=== PATIENT | female | born 1945 | race African-American/Black ===

== ENCOUNTER 2020-01-07 07:50 | Inpatient (IN) ==
[2020-01-07 08:48] LABS: Basophils # 0.1 10*3/uL (0.0-0.2); Basophils % 0.9 % (0.0-0.8); Hematocrit 39.7 VOL% (35.7-47.0); Hemoglobin 13.1 GM/DL (12.0-16.0); Immature Granulocytes % 0.2 %; Immature Granulocytes Absolute 0.01 #; Lymphocytes % 18.5 % (21.3-54.2); Mean Corpuscular Volume 89.8 FL (87-102); Mean Platelet Volume 11.3 FL (9.6-12.0); Monocytes % 11.1 % (1.7-12.7); Neutrophils % 69.3 % (38.7-73.9); Platelet Count 129 T/CUMM (130-400); Red Blood Count 4.42 MC/CUMM (3.8-5.5); Red Cell Distribution Width 14.5 % (9.3-17.3); White Blood Count 5.5 T/CUMM (4-12)
[2020-01-07 09:17] LABS: Alanine Aminotransferase 19 U/L (13-56); Alkaline Phosphatase 85 U/L (45-117); Aspartate Amino Transferase 27 U/L (0-37); Bilirubin,Total < 0.39 MG/DL (0.2-1.0); Blood Urea Nitrogen 16 MG/DL (7-18); Calcium 8.8 MG/DL (8.5-10.1); Estimated Glom Filtration Rate 65 ML/MIN; Glucose 107 MG/DL (74-106); Osmolality,Calculated 266.4 MOS/KG (273-304); Total Protein 7.7 G/DL (6.4-8.3)
[2020-01-07] MEDS ORDERED: LEVOFLOXACIN INJ 750 MG in PREMIX 1 EACH IV STA (09:56)
[2020-01-07] MEDS ORDERED: GLUCAGON 1 MG VIAL IM PRN (10:42)
[2020-01-07] MEDS ORDERED: DEXTROSE 50% 25 GM/50 ML VIAL IV PRN (10:42)
[2020-01-07] MEDS ORDERED: BISACODYL 5 MG TABLET PO PRN (10:42)
[2020-01-07] MEDS ORDERED: ENOXAPARIN 40 MG/0.4 ML SYRINGE SUBCUT SCH (12:00)
[2020-01-07 13:29] LABS: ABG Base Excess 5.3 MMOL/L (-2.5-2.5); ABG HCO3 29.2 MMOL/L (20-26); ABG Oxygen Saturation 98.9 % (95-100); ABG PCO2 43.1 MM HG (35-48); ABG TCO2 26.1 MMOL/L (23-27)
[2020-01-07] MEDS ORDERED: MAGNESIUM SULF RIDER 2 GM in PREMIX 1 EACH IV PRN (14:45)
[2020-01-07] MEDS ORDERED: MAGNESIUM SULF RIDER 4 GM in PREMIX 1 EACH IV PRN (14:45)
[2020-01-07] MEDS: SODIUM CHLORIDE 0.9% 1,000 ML IV SCH ×2 (16:31→21:10)
[2020-01-07] MEDS: cefTRIAXone 1,000 MG in SYRINGE 1 EACH IV SCH (16:31)
[2020-01-07] MEDS: AZITHROMYCIN INJ 500 MG in SODIUM CHLORIDE 0.9% 250 ML IV SCH (16:32)
[2020-01-07] MEDS: POTASSIUM CHLORIDE 20 MEQ TABLET PO PRN ×3 (19:23→23:30)
[2020-01-07] MEDS: ONDANSETRON 4 MG/2 ML VIAL IV PRN (21:10)
[2020-01-07] MEDS: carvediloL 12.5 MG TABLET PO SCH (21:10)
[2020-01-08] MEDS: SODIUM CHLORIDE 0.9% 1,000 ML IV SCH ×2 (04:55→06:23)
[2020-01-08] MEDS: ACETAMINOPHEN 325 MG TABLET PO PRN (04:55)
[2020-01-08 06:21] LABS: Basophils % 0.5 % (0.0-0.8); Hematocrit 35.2 VOL% (35.7-47.0); Hemoglobin 11.4 GM/DL (12.0-16.0); Immature Granulocytes % 0.2 %; Immature Granulocytes Absolute 0.01 #; Lymphocytes # 1.3 10*3/uL (1.4-4.0); Lymphocytes % 29.7 % (21.3-54.2); Mean Corpuscular HGB Conc 32.4 GM/DL (32-36); Mean Platelet Volume 12.5 FL (9.6-12.0); Monocytes % 11.3 % (1.7-12.7); Neutrophils % 58.3 % (38.7-73.9); Platelet Count 103 T/CUMM (130-400); Red Blood Count 3.87 MC/CUMM (3.8-5.5); Red Cell Distribution Width 14.6 % (9.3-17.3); White Blood Count 4.4 T/CUMM (4-12)
[2020-01-08 06:46] LABS: Calcium 7.9 MG/DL (8.5-10.1); Osmolality,Calculated 262.5 MOS/KG (273-304)
[2020-01-08] MEDS: ATORVASTATIN 40 MG TABLET PO SCH (09:05)
[2020-01-08] MEDS: ASPIRIN EC 81 MG TABLET PO SCH (09:05)
[2020-01-08] MEDS: AZITHROMYCIN INJ 500 MG in SODIUM CHLORIDE 0.9% 250 ML IV SCH (12:03)
[2020-01-08] MEDS: cefTRIAXone 1,000 MG in SYRINGE 1 EACH IV SCH (12:05)
[2020-01-08] MEDS: ONDANSETRON 4 MG/2 ML VIAL IV PRN (23:08)
[2020-01-09] MEDS: ONDANSETRON 4 MG/2 ML VIAL IV PRN (03:55)
[2020-01-09 05:46] LABS: Basophils % 0.4 % (0.0-0.8); Hematocrit 39.8 VOL% (35.7-47.0); Immature Granulocytes % 0.2 %; Immature Granulocytes Absolute 0.01 #; Lymphocytes # 0.8 10*3/uL (1.4-4.0); Lymphocytes % 16.1 % (21.3-54.2); Mean Corpuscular HGB Conc 32.7 GM/DL (32-36); Mean Corpuscular Volume 90.2 FL (87-102); Mean Platelet Volume 12.5 FL (9.6-12.0); Neutrophils % 76.3 % (38.7-73.9); Platelet Count 90 T/CUMM (130-400); Red Blood Count 4.41 MC/CUMM (3.8-5.5); White Blood Count 4.8 T/CUMM (4-12)
[2020-01-09 06:07] LABS: Calcium 8.3 MG/DL (8.5-10.1); Osmolality,Calculated 267.1 MOS/KG (273-304)
[2020-01-09 06:10] LABS: Hypochromasia 1+; Microcytosis Slight
[2020-01-09 06:11] LABS: Ovalocytes Slight; Platelet Estimate Decreased
[2020-01-09] MEDS: POTASSIUM CHLORIDE 20 MEQ TABLET PO PRN ×2 (06:15→09:06)
[2020-01-09] MEDS ORDERED: PROMETHAZINE 25 MG TABLET PO ONE (06:50)
[2020-01-09] MEDS: ATORVASTATIN 40 MG TABLET PO SCH (09:04)
[2020-01-09] MEDS: carvediloL 12.5 MG TABLET PO SCH ×2 (09:05→20:59)
[2020-01-09] MEDS: ACETAMINOPHEN 325 MG TABLET PO PRN (09:05)
[2020-01-09] MEDS: AZITHROMYCIN 250 MG TABLET PO SCH (09:05)
[2020-01-09] MEDS: ASPIRIN EC 81 MG TABLET PO SCH (09:05)
[2020-01-09] MEDS: cefTRIAXone 1,000 MG in SYRINGE 1 EACH IV SCH (11:53)
[2020-01-10] MEDS: ACETAMINOPHEN 325 MG TABLET PO PRN (05:46)
[2020-01-10 08:15] LABS: Basophils % 0.5 % (0.0-0.8); Hematocrit 37.6 VOL% (35.7-47.0); Hemoglobin 12.5 GM/DL (12.0-16.0); Immature Granulocytes % 0.5 %; Immature Granulocytes Absolute 0.02 #; Lymphocytes % 23.5 % (21.3-54.2); Mean Corpuscular HGB Conc 33.2 GM/DL (32-36); Mean Corpuscular Volume 88.7 FL (87-102); Mean Platelet Volume 11.9 FL (9.6-12.0); Monocytes % 4.2 % (1.7-12.7); Neutrophils % 71.3 % (38.7-73.9); Red Blood Count 4.24 MC/CUMM (3.8-5.5); Red Cell Distribution Width 14.5 % (9.3-17.3); White Blood Count 4.3 T/CUMM (4-12)
[2020-01-10 08:19] LABS: Platelet Count 98 T/CUMM (130-400)
[2020-01-10 08:33] LABS: Albumin 2.5 G/DL (3.4-5.0); Bilirubin,Total 0.5 MG/DL (0.2-1.0); Calcium 8.4 MG/DL (8.5-10.1); Osmolality,Calculated 268.1 MOS/KG (273-304); Total Protein 6.7 G/DL (6.4-8.3)
[2020-01-10 08:43] LABS: Hypochromasia 1+; Microcytosis 1+; Platelet Estimate Decreased
[2020-01-10] MEDS: ATORVASTATIN 40 MG TABLET PO SCH (09:21)
[2020-01-10] MEDS: ASPIRIN EC 81 MG TABLET PO SCH (09:21)
[2020-01-10] MEDS: carvediloL 12.5 MG TABLET PO SCH ×2 (09:21→21:58)
[2020-01-10] MEDS: AZITHROMYCIN 250 MG TABLET PO SCH (09:21)
[2020-01-10] MEDS: cefTRIAXone 1,000 MG in SYRINGE 1 EACH IV SCH (11:31)
[2020-01-10] MEDS: ONDANSETRON 4 MG/2 ML VIAL IV PRN (12:05)
[2020-01-10] MEDS ORDERED: PANTOPRAZOLE 40 MG VIAL IV ONE (16:20)
[2020-01-10] MEDS: PROMETHAZINE 25 MG TABLET PO PRN (16:45)
[2020-01-11] MEDS: ACETAMINOPHEN 325 MG TABLET PO PRN ×2 (01:03→19:49)
[2020-01-11] MEDS: guaiFENesin/DM ER 600-30 MG TABLET PO PRN (08:54)
[2020-01-11] MEDS: PANTOPRAZOLE 40 MG TABLET PO SCH (08:54)
[2020-01-11] MEDS: AZITHROMYCIN 250 MG TABLET PO SCH (08:54)
[2020-01-11] MEDS: ATORVASTATIN 40 MG TABLET PO SCH (08:54)
[2020-01-11] MEDS: ASPIRIN EC 81 MG TABLET PO SCH (08:55)
[2020-01-11] MEDS: carvediloL 12.5 MG TABLET PO SCH ×2 (08:55→21:35)
[2020-01-11] MEDS ORDERED: SODIUM CHLORIDE 0.9% 1,000 ML IV PRN (10:33)
[2020-01-11] MEDS: cefTRIAXone 1,000 MG in SYRINGE 1 EACH IV SCH (11:34)
[2020-01-11] MEDS: ONDANSETRON 4 MG/2 ML VIAL IV PRN (11:34)
[2020-01-11] MEDS ORDERED: REMDESIVIR 200 MG in SODIUM CHLORIDE 0.9% 210 ML IV ONE (12:00)
[2020-01-11] MEDS ORDERED: RIVAROXABAN 10 MG TABLET PO SCH (13:30)
[2020-01-11] MEDS: RIVAROXABAN 10 MG TABLET PO SCH (21:35)
[2020-01-12] MEDS: ACETAMINOPHEN 325 MG TABLET PO PRN ×2 (00:05→08:49)
[2020-01-12] MEDS: guaiFENesin/DM ER 600-30 MG TABLET PO PRN ×2 (01:15→20:45)
[2020-01-12 06:13] LABS: Basophils % 0.2 % (0.0-0.8); Hematocrit 37.4 VOL% (35.7-47.0); Hemoglobin 12.2 GM/DL (12.0-16.0); Immature Granulocytes % 0.5 %; Immature Granulocytes Absolute 0.02 #; Lymphocytes # 0.7 10*3/uL (1.4-4.0); Lymphocytes % 17.2 % (21.3-54.2); Mean Corpuscular HGB Conc 32.6 GM/DL (32-36); Mean Corpuscular Volume 88.8 FL (87-102); Mean Platelet Volume 12.2 FL (9.6-12.0); Monocytes % 5.1 % (1.7-12.7); Platelet Count 94 T/CUMM (130-400); Red Blood Count 4.21 MC/CUMM (3.8-5.5); Red Cell Distribution Width 14.4 % (9.3-17.3); White Blood Count 4.1 T/CUMM (4-12)
[2020-01-12 06:34] LABS: Ferritin 730.9 ng/ml (8-252)
[2020-01-12 06:35] LABS: Band Neutrophils 4 % (0-10); Lymphocytes 21 % (20-55); Platelet Estimate Decreased; Segmented Neutrophils 74 % (50-85); Total Cells Counted 100
[2020-01-12 06:36] LABS: Hypochromasia 1+; Microcytosis 1+; Ovalocytes Slight
[2020-01-12 06:54] LABS: Albumin 2.2 G/DL (3.4-5.0); Bilirubin,Total 0.4 MG/DL (0.2-1.0); Calcium 7.9 MG/DL (8.5-10.1); Osmolality,Calculated 269.1 MOS/KG (273-304); Total Protein 5.9 G/DL (6.4-8.3)
[2020-01-12] MEDS: carvediloL 12.5 MG TABLET PO SCH ×2 (08:49→20:45)
[2020-01-12] MEDS: ASPIRIN EC 81 MG TABLET PO SCH (08:49)
[2020-01-12] MEDS: ATORVASTATIN 40 MG TABLET PO SCH (08:50)
[2020-01-12] MEDS: AZITHROMYCIN 250 MG TABLET PO SCH (08:50)
[2020-01-12] MEDS: REMDESIVIR 100 MG in SODIUM CHLORIDE 0.9% 230 ML IV SCH (08:50)
[2020-01-12] MEDS: PANTOPRAZOLE 40 MG TABLET PO SCH (08:50)
[2020-01-12] MEDS ORDERED: DEXAMETHASONE INJ 10 MG in SODIUM CHLORIDE 0.9% 50 ML IV SCH (09:30)
[2020-01-12] MEDS: ZINC GLUCONATE 50 MG TABLET PO SCH (11:46)
[2020-01-12] MEDS: ASCORBIC ACID 500 MG TABLET PO SCH (11:46)
[2020-01-12] MEDS: DEXAMETHASONE INJ 10 MG in SODIUM CHLORIDE 0.9% 50 ML IV SCH (11:46)
[2020-01-12] MEDS: cefTRIAXone 1,000 MG in SYRINGE 1 EACH IV SCH (11:47)
[2020-01-12] MEDS: RIVAROXABAN 10 MG TABLET PO SCH (20:46)
[2020-01-12] MEDS: ONDANSETRON 4 MG/2 ML VIAL IV PRN (20:46)
[2020-01-13] MEDS: ACETAMINOPHEN 325 MG TABLET PO PRN (00:52)
[2020-01-13] MEDS: PROMETHAZINE 25 MG TABLET PO PRN (00:53)
[2020-01-13 06:21] LABS: Hematocrit 36.9 VOL% (35.7-47.0); Hemoglobin 12.4 GM/DL (12.0-16.0); Immature Granulocytes % 0.5 %; Immature Granulocytes Absolute 0.02 #; Lymphocytes # 0.5 10*3/uL (1.4-4.0); Mean Corpuscular HGB Conc 33.6 GM/DL (32-36); Mean Corpuscular Volume 88.5 FL (87-102); Mean Platelet Volume 12.3 FL (9.6-12.0); Monocytes % 6.9 % (1.7-12.7); Neutrophils % 78.6 % (38.7-73.9); Platelet Count 111 T/CUMM (130-400); Red Blood Count 4.17 MC/CUMM (3.8-5.5); Red Cell Distribution Width 14.1 % (9.3-17.3); White Blood Count 3.8 T/CUMM (4-12)
[2020-01-13 06:38] LABS: Calcium 8.6 MG/DL (8.5-10.1); Ferritin 1230.2 ng/ml (8-252); Osmolality,Calculated 272.1 MOS/KG (273-304)
[2020-01-13 07:39] LABS: Lymphocytes 16 % (20-55); Segmented Neutrophils 84 % (50-85); Total Cells Counted 100
[2020-01-13 07:40] LABS: Atypical Lymphocytes Few; Hypochromasia Slight
[2020-01-13 07:41] LABS: Acanthocytes Few; Elliptocytes Few; Platelet Estimate Adequate
[2020-01-13] MEDS: ZINC GLUCONATE 50 MG TABLET PO SCH (08:51)
[2020-01-13] MEDS: ASPIRIN EC 81 MG TABLET PO SCH (08:51)
[2020-01-13] MEDS: ASCORBIC ACID 500 MG TABLET PO SCH (08:51)
[2020-01-13] MEDS: AZITHROMYCIN 250 MG TABLET PO SCH (08:52)
[2020-01-13] MEDS: carvediloL 12.5 MG TABLET PO SCH ×2 (08:52→21:11)
[2020-01-13] MEDS: ATORVASTATIN 40 MG TABLET PO SCH (08:52)
[2020-01-13] MEDS: PANTOPRAZOLE 40 MG TABLET PO SCH (08:52)
[2020-01-13] MEDS: DEXAMETHASONE INJ 10 MG in SODIUM CHLORIDE 0.9% 50 ML IV SCH (09:07)
[2020-01-13] MEDS: REMDESIVIR 100 MG in SODIUM CHLORIDE 0.9% 230 ML IV SCH (09:28)
[2020-01-13] MEDS: cefTRIAXone 1,000 MG in SYRINGE 1 EACH IV SCH (12:23)
[2020-01-13] MEDS: RIVAROXABAN 10 MG TABLET PO SCH (21:11)
[2020-01-14 06:20] LABS: Basophils % 0.2 % (0.0-0.8); Hemoglobin 12.9 GM/DL (12.0-16.0); Immature Granulocytes % 0.7 %; Immature Granulocytes Absolute 0.06 #; Lymphocytes # 0.8 10*3/uL (1.4-4.0); Lymphocytes % 9.4 % (21.3-54.2); Mean Corpuscular HGB Conc 33.1 GM/DL (32-36); Mean Platelet Volume 11.9 FL (9.6-12.0); Monocytes % 8.2 % (1.7-12.7); Neutrophils % 81.5 % (38.7-73.9); Platelet Count 145 T/CUMM (130-400); Red Blood Count 4.43 MC/CUMM (3.8-5.5); Red Cell Distribution Width 14.1 % (9.3-17.3); White Blood Count 8.1 T/CUMM (4-12)
[2020-01-14 06:35] LABS: Calcium 8.5 MG/DL (8.5-10.1)
[2020-01-14 06:59] LABS: Band Neutrophils 2 % (0-10); Eosinophils 1 % (0-10); Lymphocytes 8 % (20-55); Platelet Estimate Normal; Segmented Neutrophils 86 % (50-85); Total Cells Counted 100
[2020-01-14] MEDS: AZITHROMYCIN 250 MG TABLET PO SCH (08:27)
[2020-01-14] MEDS: ASPIRIN EC 81 MG TABLET PO SCH (08:27)
[2020-01-14] MEDS: PANTOPRAZOLE 40 MG TABLET PO SCH (08:28)
[2020-01-14] MEDS: ATORVASTATIN 40 MG TABLET PO SCH (08:28)
[2020-01-14] MEDS: ZINC GLUCONATE 50 MG TABLET PO SCH (08:28)
[2020-01-14] MEDS: carvediloL 12.5 MG TABLET PO SCH ×2 (08:28→21:22)
[2020-01-14] MEDS: ASCORBIC ACID 500 MG TABLET PO SCH (08:28)
[2020-01-14] MEDS: DEXAMETHASONE INJ 10 MG in SODIUM CHLORIDE 0.9% 50 ML IV SCH (09:21)
[2020-01-14] MEDS: REMDESIVIR 100 MG in SODIUM CHLORIDE 0.9% 230 ML IV SCH (10:05)
[2020-01-14] MEDS: cefTRIAXone 1,000 MG in SYRINGE 1 EACH IV SCH (11:24)
[2020-01-14] MEDS: RIVAROXABAN 10 MG TABLET PO SCH (21:22)
[2020-01-15 06:11] LABS: Basophils % 0.3 % (0.0-0.8); Hematocrit 37.9 VOL% (35.7-47.0); Hemoglobin 12.7 GM/DL (12.0-16.0); Immature Granulocytes % 1.9 %; Immature Granulocytes Absolute 0.22 #; Lymphocytes # 0.8 10*3/uL (1.4-4.0); Lymphocytes % 6.4 % (21.3-54.2); Mean Corpuscular HGB Conc 33.5 GM/DL (32-36); Mean Corpuscular Volume 87.9 FL (87-102); Mean Platelet Volume 11.7 FL (9.6-12.0); Monocytes % 4.8 % (1.7-12.7); NRBC # 0.03 10*3/uL; Neutrophils % 86.6 % (38.7-73.9); Red Blood Count 4.31 MC/CUMM (3.8-5.5); Red Cell Distribution Width 14.3 % (9.3-17.3)
[2020-01-15 06:16] LABS: Platelet Count 185 T/CUMM (130-400); White Blood Count 11.9 T/CUMM (4-12)
[2020-01-15 06:39] LABS: Calcium 8.3 MG/DL (8.5-10.1); Osmolality,Calculated 280.7 MOS/KG (273-304)
[2020-01-15 06:46] LABS: Hypochromasia 1+; Microcytosis 1+; Ovalocytes Slight; Platelet Estimate Adequate
[2020-01-15] MEDS: ATORVASTATIN 40 MG TABLET PO SCH (09:27)
[2020-01-15] MEDS: AZITHROMYCIN 250 MG TABLET PO SCH (09:27)
[2020-01-15] MEDS: REMDESIVIR 100 MG in SODIUM CHLORIDE 0.9% 230 ML IV SCH (09:27)
[2020-01-15] MEDS: ASCORBIC ACID 500 MG TABLET PO SCH (09:27)
[2020-01-15] MEDS: ACETAMINOPHEN 325 MG TABLET PO PRN ×2 (09:27→21:31)
[2020-01-15] MEDS: ASPIRIN EC 81 MG TABLET PO SCH (09:28)
[2020-01-15] MEDS: PANTOPRAZOLE 40 MG TABLET PO SCH (09:28)
[2020-01-15] MEDS: carvediloL 12.5 MG TABLET PO SCH ×2 (09:28→21:31)
[2020-01-15] MEDS: ZINC GLUCONATE 50 MG TABLET PO SCH (09:28)
[2020-01-15 09:56] LABS: ABG Base Excess 8.7 MMOL/L (-2.5-2.5); ABG HCO3 32.1 MMOL/L (20-26); ABG Oxygen Saturation 82.4 % (95-100); ABG PCO2 47.6 MM HG (35-48); ABG PH 7.461 (7.35-7.45); ABG TCO2 29.8 MMOL/L (23-27)
[2020-01-15] MEDS: DEXAMETHASONE INJ 10 MG in SODIUM CHLORIDE 0.9% 50 ML IV SCH (11:12)
[2020-01-15] MEDS ORDERED: hydrALAZINE 20 MG/1 ML VIAL IV PRN (17:34)
[2020-01-15] MEDS: RIVAROXABAN 10 MG TABLET PO SCH (21:31)
[2020-01-15 22:56] LABS: Bilirubin,Urine Negative (Negative); Blood, Urine Small mg/dL (Negative); Glucose,Urine (UA) 50 mg/dL (Negative); Ketones,Urine Negative (Negative); Mucus,Urine Occasional /LPF (Occasional); Nitrite,Urine Negative (Negative); Protein,Urine Negative; RBC,Urine 18 /HPF (0-4); Squamous Epithelial Cell,Urine Occasional /HPF (0-10); Urine Appearance CLEAR (Clear); Urine Color Yellow (Yellow); Urine Specific Gravity 1.012 (1.001-1.035); Urine Urobilinogen < 2.0 EU/DL (0.2-1.0); WBC,Urine 6 /HPF (0-6)
[2020-01-16] MEDS ORDERED: LABETALOL 20 MG/4 ML SYRINGE IV PRN (00:52)
[2020-01-16 02:57] LABS: ABG Base Excess 9.3 MMOL/L (-2.5-2.5); ABG HCO3 32.7 MMOL/L (20-26); ABG Oxygen Saturation 85.4 % (95-100); ABG PCO2 46.6 MM HG (35-48); ABG PH 7.477 (7.35-7.45); ABG PO2 51.2 MM HG (80-95); ABG TCO2 29.5 MMOL/L (23-27); Allen Test Positive
[2020-01-16 04:20] LABS: Basophils % 0.3 % (0.0-0.8); Eosinophils % 0.1 % (0.00-10.9); Hematocrit 43.1 VOL% (35.7-47.0); Hemoglobin 14.5 GM/DL (12.0-16.0); Immature Granulocytes % 3.7 %; Lymphocytes # 0.7 10*3/uL (1.4-4.0); Lymphocytes % 4.9 % (21.3-54.2); Mean Corpuscular HGB Conc 33.6 GM/DL (32-36); Mean Corpuscular Volume 86.9 FL (87-102); Mean Platelet Volume 11.1 FL (9.6-12.0); Monocytes % 2.4 % (1.7-12.7); NRBC # 0.06 10*3/uL; Neutrophils % 88.6 % (38.7-73.9); Platelet Count 208 T/CUMM (130-400); Red Blood Count 4.96 MC/CUMM (3.8-5.5); Red Cell Distribution Width 14.1 % (9.3-17.3); White Blood Count 13.6 T/CUMM (4-12)
[2020-01-16 04:49] LABS: Calcium 8.4 MG/DL (8.5-10.1); Ferritin 901.7 ng/ml (8-252); Osmolality,Calculated 277.8 MOS/KG (273-304)
[2020-01-16 05:10] LABS: Band Neutrophils 1 % (0-10); Lymphocytes 4 % (20-55); Nucleated Red Blood Cells 1 (0-5); Segmented Neutrophils 94 % (50-85); Total Cells Counted 100
[2020-01-16 05:11] LABS: Hypochromasia 1+; Microcytosis 1+; Platelet Estimate Adequate
[2020-01-16] MEDS: ONDANSETRON 4 MG/2 ML VIAL IV PRN (06:28)
[2020-01-16] MEDS ORDERED: IBUPROFEN 400 MG TABLET PO PRN (07:33)
[2020-01-16] MEDS: ZINC GLUCONATE 50 MG TABLET PO SCH (08:08)
[2020-01-16] MEDS: ATORVASTATIN 40 MG TABLET PO SCH (08:08)
[2020-01-16] MEDS: AZITHROMYCIN 250 MG TABLET PO SCH (08:08)
[2020-01-16] MEDS: carvediloL 12.5 MG TABLET PO SCH ×2 (08:08→20:16)
[2020-01-16] MEDS: ASPIRIN EC 81 MG TABLET PO SCH (08:08)
[2020-01-16] MEDS: POTASSIUM CHLORIDE 20 MEQ TABLET PO PRN (08:08)
[2020-01-16] MEDS: ASCORBIC ACID 500 MG TABLET PO SCH (08:08)
[2020-01-16] MEDS: PANTOPRAZOLE 40 MG TABLET PO SCH (08:08)
[2020-01-16] MEDS: ENOXAPARIN 30 MG/0.3 ML SYRINGE SUBCUT SCH ×2 (08:09→20:27)
[2020-01-16] MEDS: ACETAMINOPHEN 325 MG TABLET PO PRN (08:11)
[2020-01-16] MEDS: DEXAMETHASONE INJ 10 MG in SODIUM CHLORIDE 0.9% 50 ML IV SCH (08:11)
[2020-01-16] MEDS ORDERED: SUCCINYLCHOLINE 200 MG/10 ML VIAL ONE (15:31)
[2020-01-16] MEDS ORDERED: ETOMIDATE 20 MG/10 ML VIAL IV ONE ×2 (15:31→15:47)
[2020-01-16] MEDS ORDERED: SODIUM CHLORIDE 0.9% 500 ML IV ONE ×2 (15:45→17:09)
[2020-01-16] MEDS ORDERED: SUCCINYLCHOLINE 200 MG/10 ML VIAL IV ONE (15:48)
[2020-01-16] MEDS ORDERED: FUROSEMIDE 40 MG/4 ML VIAL IV ONE (16:07)
[2020-01-16] MEDS: fentaNYL INJ 1,250 MCG in SODIUM CHLORIDE 0.9% 225 ML IV PRN (18:01)
[2020-01-16] MEDS: NOREPINEPHRINE 8 MG in SODIUM CHLORIDE 0.9% 242 ML IV PRN (18:01)
[2020-01-17 03:30] LABS: ABG Base Excess 4.2 MMOL/L (-2.5-2.5); ABG HCO3 27.8 MMOL/L (20-26); ABG Oxygen Saturation 84.2 % (95-100); ABG PCO2 52.7 MM HG (35-48); ABG PH 7.376 (7.35-7.45); ABG PO2 54.8 MM HG (80-95); ABG TCO2 26.9 MMOL/L (23-27); Allen Test Positive; Pt O2 Delivery Device Ventilator
[2020-01-17 04:42] LABS: Basophils # 0.1 10*3/uL (0.0-0.2); Basophils % 0.5 % (0.0-0.8); Eosinophils % 0.1 % (0.00-10.9); Hematocrit 41.2 VOL% (35.7-47.0); Hemoglobin 13.4 GM/DL (12.0-16.0); Immature Granulocytes % 2.4 %; Immature Granulocytes Absolute 0.42 #; Lymphocytes # 0.6 10*3/uL (1.4-4.0); Lymphocytes % 3.5 % (21.3-54.2); Mean Corpuscular HGB Conc 32.5 GM/DL (32-36); Mean Corpuscular Volume 89.4 FL (87-102); Mean Platelet Volume 11.2 FL (9.6-12.0); Monocytes % 1.9 % (1.7-12.7); NRBC # 0.19 10*3/uL; Neutrophils % 91.6 % (38.7-73.9); Platelet Count 239 T/CUMM (130-400); Red Blood Count 4.61 MC/CUMM (3.8-5.5); Red Cell Distribution Width 14.5 % (9.3-17.3); White Blood Count 17.8 T/CUMM (4-12)
[2020-01-17 05:05] LABS: Lymphocytes 5 % (20-55); Nucleated Red Blood Cells 2 (0-5); Platelet Estimate Adequate; Segmented Neutrophils 92 % (50-85); Total Cells Counted 100
[2020-01-17 05:06] LABS: Burr Cells Slight; Hypochromasia 1+; Microcytosis Slight; Ovalocytes Slight
[2020-01-17 05:08] LABS: Calcium 7.8 MG/DL (8.5-10.1); Osmolality,Calculated 286.7 MOS/KG (273-304)
[2020-01-17] MEDS: fentaNYL INJ 1,250 MCG in SODIUM CHLORIDE 0.9% 225 ML IV PRN ×2 (07:00→15:35)
[2020-01-17] MEDS: NOREPINEPHRINE 8 MG in SODIUM CHLORIDE 0.9% 242 ML IV PRN ×3 (07:00→23:04)
[2020-01-17] MEDS: ZINC GLUCONATE 50 MG TABLET PO SCH (08:06)
[2020-01-17] MEDS: ENOXAPARIN 30 MG/0.3 ML SYRINGE SUBCUT SCH ×2 (08:06→20:59)
[2020-01-17] MEDS: ASCORBIC ACID 500 MG TABLET PO SCH (08:06)
[2020-01-17] MEDS: ASPIRIN CHEW 81 MG TABLET PO SCH (08:06)
[2020-01-17] MEDS: carvediloL 12.5 MG TABLET PO SCH (08:07)
[2020-01-17] MEDS: ATORVASTATIN 40 MG TABLET PO SCH (08:07)
[2020-01-17] MEDS ORDERED: PANTOPRAZOLE 40 MG VIAL IV SCH (09:00)
[2020-01-17] MEDS: DEXAMETHASONE INJ 10 MG in SODIUM CHLORIDE 0.9% 50 ML IV SCH (09:01)
[2020-01-17] MEDS: cefTRIAXone 1,000 MG in SYRINGE 1 EACH IV SCH (09:04)
[2020-01-17] MEDS: FAMOTIDINE 20 MG/2 ML VIAL IV SCH ×2 (12:29→20:59)
[2020-01-17] MEDS: SODIUM CHLORIDE 0.9% 1,000 ML IV SCH (12:29)
[2020-01-17] MEDS: INSULIN REGULAR 100 UNIT/ML SUBCUT SCH ×2 (13:48→18:34)
[2020-01-17] MEDS ORDERED: MIDAZOLAM 10 MG/2 ML VIAL IV ONE (17:21)
[2020-01-17] MEDS ORDERED: SODIUM CHLORIDE 0.9% 1,000 ML IV ONE (17:22)
[2020-01-17] MEDS ORDERED: MIDAZOLAM 10 MG/2 ML VIAL ONE (17:23)
[2020-01-17] MEDS ORDERED: MIDAZOLAM 100 MG in SODIUM CHLORIDE 0.9% 80 ML IV PRN (17:43)
[2020-01-17] MEDS ORDERED: AMIODARONE 450 MG/9 ML VIAL IV ONE (20:18)
[2020-01-17] MEDS ORDERED: AMIODARONE 150 MG/3 ML VIAL ONE (20:18)
[2020-01-17] MEDS ORDERED: AMIODARONE INJ 150 MG in DEXTROSE 5% 100 ML IV ONE (20:20)
[2020-01-17] MEDS ORDERED: AMIODARONE INJ 450 MG in DEXTROSE 5% 241 ML IV SCH (20:20)
[2020-01-18] MEDS: INSULIN REGULAR 100 UNIT/ML SUBCUT SCH ×4 (00:25→18:15)
[2020-01-18] MEDS: SODIUM CHLORIDE 0.9% 1,000 ML IV SCH ×3 (01:38→18:20)
[2020-01-18] MEDS: fentaNYL INJ 1,250 MCG in SODIUM CHLORIDE 0.9% 225 ML IV PRN (02:10)
[2020-01-18] MEDS: AMIODARONE INJ 450 MG in DEXTROSE 5% 241 ML IV SCH ×2 (02:41→18:17)
[2020-01-18 03:38] LABS: ABG Base Excess 0.6 MMOL/L (-2.5-2.5); ABG HCO3 26.8 MMOL/L (20-26); ABG Oxygen Saturation 97.7 % (95-100); ABG PCO2 49.5 MM HG (35-48); ABG PH 7.351 (7.35-7.45); ABG PO2 112.4 MM HG (80-95); ABG TCO2 28.3 MMOL/L (23-27); Allen Test Positive; Pt O2 Delivery Device Ventilator
[2020-01-18 04:46] LABS: Basophils # 0.1 10*3/uL (0.0-0.2); Basophils % 0.4 % (0.0-0.8); Hematocrit 37.2 VOL% (35.7-47.0); Hemoglobin 11.8 GM/DL (12.0-16.0); Immature Granulocytes % 2.8 %; Immature Granulocytes Absolute 0.59 #; Lymphocytes # 0.4 10*3/uL (1.4-4.0); Lymphocytes % 1.7 % (21.3-54.2); Mean Corpuscular HGB Conc 31.7 GM/DL (32-36); Mean Platelet Volume 11.8 FL (9.6-12.0); Monocytes % 1.5 % (1.7-12.7); NRBC # 0.23 10*3/uL; Neutrophils % 93.6 % (38.7-73.9); Platelet Count 222 T/CUMM (130-400); Red Blood Count 4.09 MC/CUMM (3.8-5.5); Red Cell Distribution Width 15.1 % (9.3-17.3); White Blood Count 20.8 T/CUMM (4-12)
[2020-01-18 04:58] LABS: Calcium 7.7 MG/DL (8.5-10.1); Osmolality,Calculated 298.8 MOS/KG (273-304)
[2020-01-18 05:20] LABS: Lymphocytes 1 % (20-55); Nucleated Red Blood Cells 1 (0-5); Platelet Estimate Adequate; Segmented Neutrophils 97 % (50-85); Total Cells Counted 100
[2020-01-18 05:21] LABS: Burr Cells Slight; Hypochromasia 1+; Microcytosis Slight; Ovalocytes Slight
[2020-01-18] MEDS: CHOLECALCIFEROL 1,000 UNIT TABLET PO SCH (08:11)
[2020-01-18] MEDS: CETIRIZINE 10 MG TABLET PO SCH (08:11)
[2020-01-18] MEDS: ASCORBIC ACID 500 MG TABLET PO SCH (08:12)
[2020-01-18] MEDS: ATORVASTATIN 40 MG TABLET PO SCH (08:12)
[2020-01-18] MEDS: ENOXAPARIN 30 MG/0.3 ML SYRINGE SUBCUT SCH ×2 (08:12→20:18)
[2020-01-18] MEDS: ZINC GLUCONATE 50 MG TABLET PO SCH (08:12)
[2020-01-18] MEDS: DEXAMETHASONE INJ 10 MG in SODIUM CHLORIDE 0.9% 50 ML IV SCH (08:13)
[2020-01-18] MEDS: ASPIRIN CHEW 81 MG TABLET PO SCH (08:17)
[2020-01-18] MEDS: cefTRIAXone 1,000 MG in SYRINGE 1 EACH IV SCH (08:17)
[2020-01-18] MEDS ORDERED: FLUDROCORTISONE 0.1 MG TABLET PER TUBE ONE (10:00)
[2020-01-18] MEDS: HYDROCORTISONE 100 MG VIAL IV SCH ×2 (10:17→18:15)
[2020-01-18] MEDS: FAMOTIDINE 20 MG/2 ML VIAL IV SCH (12:18)
[2020-01-18] MEDS: NOREPINEPHRINE 8 MG in SODIUM CHLORIDE 0.9% 242 ML IV PRN (13:01)
[2020-01-18 17:35] LABS: Calcium 8.2 MG/DL (8.5-10.1); Osmolality,Calculated 293.1 MOS/KG (273-304)
[2020-01-18] MEDS: METOCLOPRAMIDE 10 MG/2 ML VIAL IV SCH (18:15)
[2020-01-18] MEDS: FLUDROCORTISONE 0.1 MG TABLET PER TUBE SCH (20:18)
[2020-01-19] MEDS: FAMOTIDINE 20 MG/2 ML VIAL IV SCH ×2 (00:27→10:45)
[2020-01-19] MEDS: INSULIN REGULAR 100 UNIT/ML SUBCUT SCH ×3 (00:28→11:53)
[2020-01-19] MEDS: METOCLOPRAMIDE 10 MG/2 ML VIAL IV SCH ×4 (00:30→17:48)
[2020-01-19 02:57] LABS: ABG HCO3 26.6 MMOL/L (20-26); ABG Oxygen Saturation 91.5 % (95-100); ABG PCO2 51.4 MM HG (35-48); ABG PH 7.331 (7.35-7.45); ABG PO2 66.1 MM HG (80-95); ABG TCO2 28.1 MMOL/L (23-27); Allen Test Positive; Pt O2 Delivery Device Ventilator
[2020-01-19] MEDS: SODIUM CHLORIDE 0.9% 1,000 ML IV SCH ×3 (03:28→21:28)
[2020-01-19] MEDS: HYDROCORTISONE 100 MG VIAL IV SCH ×3 (03:38→17:47)
[2020-01-19 04:32] LABS: Basophils % 0.2 % (0.0-0.8); Hematocrit 33.6 VOL% (35.7-47.0); Hemoglobin 10.9 GM/DL (12.0-16.0); Immature Granulocytes % 2.5 %; Immature Granulocytes Absolute 0.51 #; Lymphocytes # 0.2 10*3/uL (1.4-4.0); Mean Corpuscular HGB Conc 32.4 GM/DL (32-36); Mean Corpuscular Volume 91.6 FL (87-102); Mean Platelet Volume 11.9 FL (9.6-12.0); Monocytes % 1.1 % (1.7-12.7); NRBC # 0.25 10*3/uL; Neutrophils % 95.2 % (38.7-73.9); Platelet Count 215 T/CUMM (130-400); Red Blood Count 3.67 MC/CUMM (3.8-5.5); Red Cell Distribution Width 15.8 % (9.3-17.3); White Blood Count 20.2 T/CUMM (4-12)
[2020-01-19 04:50] LABS: Calcium 7.8 MG/DL (8.5-10.1); Ferritin 885.2 ng/ml (8-252); Osmolality,Calculated 299.8 MOS/KG (273-304)
[2020-01-19 05:00] LABS: Band Neutrophils 1 % (0-10); Eosinophils 1 % (0-10); Hypochromasia 1+; Lymphocytes 2 % (20-55); Microcytosis Slight; Nucleated Red Blood Cells 1 (0-5); Ovalocytes Slight; Platelet Estimate Adequate; Segmented Neutrophils 96 % (50-85); Total Cells Counted 100
[2020-01-19] MEDS: FLUDROCORTISONE 0.1 MG TABLET PER TUBE SCH ×2 (08:21→21:29)
[2020-01-19] MEDS: CETIRIZINE 10 MG TABLET PO SCH (08:21)
[2020-01-19] MEDS: ZINC GLUCONATE 50 MG TABLET PO SCH (08:21)
[2020-01-19] MEDS: ATORVASTATIN 40 MG TABLET PO SCH (08:21)
[2020-01-19] MEDS: ASCORBIC ACID 500 MG TABLET PO SCH (08:21)
[2020-01-19] MEDS: CHOLECALCIFEROL 1,000 UNIT TABLET PO SCH (08:22)
[2020-01-19] MEDS: ENOXAPARIN 30 MG/0.3 ML SYRINGE SUBCUT SCH ×2 (08:22→21:29)
[2020-01-19] MEDS: ASPIRIN CHEW 81 MG TABLET PO SCH (08:22)
[2020-01-19] MEDS: cefTRIAXone 1,000 MG in SYRINGE 1 EACH IV SCH (10:19)
[2020-01-19] MEDS: AMIODARONE INJ 450 MG in DEXTROSE 5% 241 ML IV SCH (10:49)
[2020-01-19] MEDS: FLUCONAZOLE INJ 200 MG in PREMIX 1 EACH IV SCH (16:06)
[2020-01-19] MEDS: INSULIN LISPRO 100 UNIT/ML SUBCUT SCH ×3 (16:07→21:30)
[2020-01-19] MEDS: ROCURONIUM 500 MG in SODIUM CHLORIDE 0.9% 500 ML IV PRN (17:47)
[2020-01-19] MEDS: AMIODARONE 200 MG TABLET PO SCH (21:29)
[2020-01-20] MEDS: FAMOTIDINE 20 MG/2 ML VIAL IV SCH ×2 (00:06→12:26)
[2020-01-20] MEDS: METOCLOPRAMIDE 10 MG/2 ML VIAL IV SCH ×4 (00:06→17:52)
[2020-01-20 02:44] LABS: ABG Base Excess -0.9 MMOL/L (-2.5-2.5); ABG HCO3 26.5 MMOL/L (20-26); ABG PCO2 57.4 MM HG (35-48); ABG PH 7.282 (7.35-7.45); ABG PO2 197.8 MM HG (80-95); ABG TCO2 28.3 MMOL/L (23-27); Allen Test Positive; Pt O2 Delivery Device Ventilator
[2020-01-20] MEDS: INSULIN LISPRO 100 UNIT/ML SUBCUT SCH ×4 (02:52→17:53)
[2020-01-20] MEDS: HYDROCORTISONE 100 MG VIAL IV SCH ×3 (02:57→17:53)
[2020-01-20 05:12] LABS: Basophils % 0.1 % (0.0-0.8); Hematocrit 32.9 VOL% (35.7-47.0); Hemoglobin 10.3 GM/DL (12.0-16.0); Immature Granulocytes Absolute 0.58 #; Lymphocytes # 0.2 10*3/uL (1.4-4.0); Lymphocytes % 1.2 % (21.3-54.2); Mean Corpuscular HGB Conc 31.3 GM/DL (32-36); Mean Corpuscular Volume 92.9 FL (87-102); Mean Platelet Volume 11.4 FL (9.6-12.0); Monocytes % 1.1 % (1.7-12.7); NRBC # 0.13 10*3/uL; Neutrophils % 94.6 % (38.7-73.9); Platelet Count 212 T/CUMM (130-400); Red Blood Count 3.54 MC/CUMM (3.8-5.5); White Blood Count 19.6 T/CUMM (4-12)
[2020-01-20 05:23] LABS: Calcium 7.8 MG/DL (8.5-10.1); Ferritin 649.2 ng/ml (8-252); Osmolality,Calculated 302.4 MOS/KG (273-304)
[2020-01-20 05:33] LABS: Nucleated Red Blood Cells 2 (0-5); Platelet Estimate Adequate; Segmented Neutrophils 99 % (50-85); Total Cells Counted 100
[2020-01-20 05:34] LABS: Hypochromasia 1+; Microcytosis 1+
[2020-01-20] MEDS: ROCURONIUM 500 MG in SODIUM CHLORIDE 0.9% 500 ML IV PRN (06:25)
[2020-01-20] MEDS: ZINC GLUCONATE 50 MG TABLET PO SCH (08:57)
[2020-01-20] MEDS: ASCORBIC ACID 500 MG TABLET PO SCH (08:57)
[2020-01-20] MEDS: FLUDROCORTISONE 0.1 MG TABLET PER TUBE SCH ×2 (08:57→20:14)
[2020-01-20] MEDS: ASPIRIN CHEW 81 MG TABLET PO SCH (08:58)
[2020-01-20] MEDS: ENOXAPARIN 30 MG/0.3 ML SYRINGE SUBCUT SCH ×2 (08:58→20:14)
[2020-01-20] MEDS: CETIRIZINE 10 MG TABLET PO SCH (08:58)
[2020-01-20] MEDS: CHOLECALCIFEROL 1,000 UNIT TABLET PO SCH (08:58)
[2020-01-20] MEDS: AMIODARONE 200 MG TABLET PO SCH ×2 (08:58→20:15)
[2020-01-20] MEDS: FLUCONAZOLE INJ 200 MG in PREMIX 1 EACH IV SCH (14:31)
[2020-01-21] MEDS: INSULIN LISPRO 100 UNIT/ML SUBCUT SCH ×5 (00:49→23:43)
[2020-01-21] MEDS: METOCLOPRAMIDE 10 MG/2 ML VIAL IV SCH ×5 (00:49→23:43)
[2020-01-21] MEDS: FAMOTIDINE 20 MG/2 ML VIAL IV SCH ×3 (00:50→23:43)
[2020-01-21] MEDS: HYDROCORTISONE 100 MG VIAL IV SCH ×2 (01:10→09:21)
[2020-01-21] MEDS: ROCURONIUM 500 MG in SODIUM CHLORIDE 0.9% 500 ML IV PRN (02:07)
[2020-01-21 04:40] LABS: Alanine Aminotransferase 14 U/L (13-56); Albumin 1.3 G/DL (3.4-5.0); Alkaline Phosphatase 70 U/L (45-117); Aspartate Amino Transferase 21 U/L (0-37); Bilirubin,Total < 0.39 MG/DL (0.2-1.0); Blood Urea Nitrogen 37 MG/DL (7-18); Calcium 7.5 MG/DL (8.5-10.1); Estimated Glom Filtration Rate 99 ML/MIN; Ferritin 561.4 ng/ml (8-252); Glucose 192 MG/DL (74-106); Osmolality,Calculated 303.6 MOS/KG (273-304)
[2020-01-21 04:57] LABS: ABG Base Excess -0.9 MMOL/L (-2.5-2.5); ABG HCO3 23.6 MMOL/L (20-26); ABG Oxygen Saturation 95.5 % (95-100); ABG PCO2 46.2 MM HG (35-48); ABG PH 7.342 (7.35-7.45); ABG PO2 80.2 MM HG (80-95); ABG TCO2 22.9 MMOL/L (23-27); Allen Test Positive; Pt O2 Delivery Device Ventilator
[2020-01-21 05:27] LABS: Basophils % 0.2 % (0.0-0.8); Hematocrit 30.8 VOL% (35.7-47.0); Hemoglobin 9.9 GM/DL (12.0-16.0); Immature Granulocytes Absolute 0.61 #; Lymphocytes # 0.2 10*3/uL (1.4-4.0); Lymphocytes % 1.1 % (21.3-54.2); Mean Corpuscular HGB Conc 32.1 GM/DL (32-36); Mean Corpuscular Volume 92.2 FL (87-102); Monocytes % 1.5 % (1.7-12.7); NRBC # 0.12 10*3/uL; Neutrophils % 94.2 % (38.7-73.9); Platelet Count 176 T/CUMM (130-400); Red Blood Count 3.34 MC/CUMM (3.8-5.5); Red Cell Distribution Width 16.2 % (9.3-17.3); White Blood Count 20.5 T/CUMM (4-12)
[2020-01-21 07:28] LABS: Lymphocytes 1 % (20-55); Segmented Neutrophils 97 % (50-85); Total Cells Counted 100
[2020-01-21 07:30] LABS: Hypochromasia 2+; Platelet Estimate Normal
[2020-01-21] MEDS: AMIODARONE 200 MG TABLET PO SCH ×2 (08:27→20:00)
[2020-01-21] MEDS: CETIRIZINE 10 MG TABLET PO SCH (08:27)
[2020-01-21] MEDS: ASCORBIC ACID 500 MG TABLET PO SCH (08:27)
[2020-01-21] MEDS: ZINC GLUCONATE 50 MG TABLET PO SCH (08:27)
[2020-01-21] MEDS: ENOXAPARIN 30 MG/0.3 ML SYRINGE SUBCUT SCH ×2 (08:27→19:44)
[2020-01-21] MEDS: CHOLECALCIFEROL 1,000 UNIT TABLET PO SCH (08:27)
[2020-01-21] MEDS: ASPIRIN CHEW 81 MG TABLET PO SCH (08:27)
[2020-01-21] MEDS: FLUDROCORTISONE 0.1 MG TABLET PER TUBE SCH (08:27)
[2020-01-21] MEDS ORDERED: hydrALAZINE 20 MG/1 ML VIAL IV PRN (09:03)
[2020-01-21] MEDS ORDERED: DEXMEDETOMIDINE 200 MCG in SODIUM CHLORIDE 0.9% 48 ML IV PRN (09:05)
[2020-01-21] MEDS: METOPROLOL TARTRATE 25 MG TABLET PO SCH ×2 (09:21→20:00)
[2020-01-21] MEDS ORDERED: amLODIPine 10 MG TABLET PO SCH (09:30)
[2020-01-21] MEDS: fentaNYL INJ 1,250 MCG in SODIUM CHLORIDE 0.9% 225 ML IV PRN (11:01)
[2020-01-21 11:47] LABS: ABG Base Excess -2.8 MMOL/L (-2.5-2.5); ABG HCO3 26.3 MMOL/L (20-26); ABG Oxygen Saturation 90.7 % (95-100); ABG PCO2 67.3 MM HG (35-48); ABG PO2 69.5 MM HG (80-95); ABG TCO2 28.3 MMOL/L (23-27); Allen Test Positive; Pt O2 Delivery Device Ventilator
[2020-01-21 11:52] LABS: ABG PH 7.209 (7.35-7.45)
[2020-01-21] MEDS ORDERED: FUROSEMIDE 20 MG/2 ML VIAL IV ONE (15:26)
[2020-01-21] MEDS ORDERED: NOREPINEPHRINE 4 MG/4 ML VIAL IV ONE (21:13)
[2020-01-21] MEDS: NOREPINEPHRINE 8 MG in SODIUM CHLORIDE 0.9% 242 ML IV PRN (21:30)
[2020-01-22] MEDS: fentaNYL INJ 1,250 MCG in SODIUM CHLORIDE 0.9% 225 ML IV PRN ×7 (00:45→23:49)
[2020-01-22 04:08] LABS: Basophils # 0.1 10*3/uL (0.0-0.2); Basophils % 0.3 % (0.0-0.8); Eosinophils # 0.2 10*3/uL (0.0-0.87); Hematocrit 32.8 VOL% (35.7-47.0); Hemoglobin 10.5 GM/DL (12.0-16.0); Immature Granulocytes % 3.9 %; Immature Granulocytes Absolute 0.87 #; Lymphocytes # 0.5 10*3/uL (1.4-4.0); Lymphocytes % 2.3 % (21.3-54.2); Mean Corpuscular Volume 92.7 FL (87-102); Monocytes % 1.2 % (1.7-12.7); NRBC # 0.25 10*3/uL; Neutrophils % 91.3 % (38.7-73.9); Platelet Count 202 T/CUMM (130-400); Red Blood Count 3.54 MC/CUMM (3.8-5.5); Red Cell Distribution Width 16.6 % (9.3-17.3); White Blood Count 22.5 T/CUMM (4-12)
[2020-01-22 04:34] LABS: Eosinophils 1 % (0-10); Lymphocytes 1 % (20-55); Nucleated Red Blood Cells 4 (0-5); Platelet Estimate Normal; Polychromasia Slight; Segmented Neutrophils 98 % (50-85); Total Cells Counted 100
[2020-01-22 04:36] LABS: Anisocytosis Slight; Microcytosis Slight
[2020-01-22 04:38] LABS: ABG HCO3 23.5 MMOL/L (20-26); ABG Oxygen Saturation 93.2 % (95-100); ABG PCO2 59.4 MM HG (35-48); ABG PH 7.273 (7.35-7.45); ABG PO2 74.5 MM HG (80-95); ABG TCO2 24.3 MMOL/L (23-27); Allen Test Positive; Pt O2 Delivery Device Ventilator
[2020-01-22 05:12] LABS: Calcium 7.7 MG/DL (8.5-10.1); Osmolality,Calculated 304.4 MOS/KG (273-304)
[2020-01-22] MEDS: METOCLOPRAMIDE 10 MG/2 ML VIAL IV SCH ×4 (06:11→23:49)
[2020-01-22] MEDS: INSULIN LISPRO 100 UNIT/ML SUBCUT SCH ×4 (06:12→23:48)
[2020-01-22] MEDS: CHOLECALCIFEROL 1,000 UNIT TABLET PO SCH (08:50)
[2020-01-22] MEDS: ASCORBIC ACID 500 MG TABLET PO SCH (08:50)
[2020-01-22] MEDS: ASPIRIN CHEW 81 MG TABLET PO SCH (08:50)
[2020-01-22] MEDS: ENOXAPARIN 30 MG/0.3 ML SYRINGE SUBCUT SCH ×2 (08:50→20:05)
[2020-01-22] MEDS: ZINC GLUCONATE 50 MG TABLET PO SCH (08:50)
[2020-01-22] MEDS: CETIRIZINE 10 MG TABLET PO SCH (08:51)
[2020-01-22] MEDS: AMIODARONE 200 MG TABLET PO SCH ×2 (08:51→20:05)
[2020-01-22] MEDS: METOPROLOL TARTRATE 25 MG TABLET PO SCH (08:52)
[2020-01-22] MEDS: FAMOTIDINE 20 MG/2 ML VIAL IV SCH ×2 (11:27→23:18)
[2020-01-22] MEDS: NOREPINEPHRINE 8 MG in SODIUM CHLORIDE 0.9% 242 ML IV PRN (11:36)
[2020-01-22] MEDS ORDERED: SODIUM CHLORIDE 0.9% 1,000 ML IV ONE (12:52)
[2020-01-22] MEDS: HYDROCORTISONE 100 MG VIAL IV SCH ×2 (13:08→20:05)
[2020-01-22] MEDS: ROCURONIUM 500 MG in SODIUM CHLORIDE 0.9% 500 ML IV PRN (14:15)
[2020-01-22 14:46] LABS: Allen Test Positive; Pt O2 Delivery Device Ventilator
[2020-01-22 14:47] LABS: ABG Base Excess -2.2 MMOL/L (-2.5-2.5); ABG HCO3 22.3 MMOL/L (20-26); ABG Oxygen Saturation 78.7 % (95-100); ABG PCO2 63.5 MM HG (35-48); ABG PH 7.228 (7.35-7.45); ABG PO2 50.3 MM HG (80-95); ABG TCO2 24.8 MMOL/L (23-27)
[2020-01-22] MEDS: FUROSEMIDE 40 MG/4 ML VIAL IV SCH (15:41)
[2020-01-22] MEDS: ALBUMIN 25% 12.5 GM in PREMIX 1 EACH IV SCH ×3 (15:42→23:18)
[2020-01-22] MEDS: FLUDROCORTISONE 0.1 MG TABLET PO SCH (20:04)
[2020-01-23] MEDS: NOREPINEPHRINE 8 MG in SODIUM CHLORIDE 0.9% 242 ML IV PRN ×2 (01:18→20:56)
[2020-01-23] MEDS: ROCURONIUM 500 MG in SODIUM CHLORIDE 0.9% 500 ML IV PRN ×2 (01:58→16:49)
[2020-01-23] MEDS: fentaNYL INJ 1,250 MCG in SODIUM CHLORIDE 0.9% 225 ML IV PRN ×4 (03:28→21:30)
[2020-01-23 04:03] LABS: Basophils % 0.1 % (0.0-0.8); Eosinophils % 0.1 % (0.00-10.9); Hematocrit 28.7 VOL% (35.7-47.0); Hemoglobin 8.9 GM/DL (12.0-16.0); Immature Granulocytes % 2.4 %; Immature Granulocytes Absolute 0.53 #; Lymphocytes # 0.2 10*3/uL (1.4-4.0); Mean Corpuscular Volume 94.7 FL (87-102); NRBC # 0.05 10*3/uL; Neutrophils % 95.4 % (38.7-73.9); Platelet Count 163 T/CUMM (130-400); Red Blood Count 3.03 MC/CUMM (3.8-5.5); Red Cell Distribution Width 16.9 % (9.3-17.3); White Blood Count 22.3 T/CUMM (4-12)
[2020-01-23 04:14] LABS: ABG Base Excess 0.2 MMOL/L (-2.5-2.5); ABG HCO3 24.6 MMOL/L (20-26); ABG Oxygen Saturation 97.1 % (95-100); ABG PCO2 66.5 MM HG (35-48); ABG PH 7.244 (7.35-7.45); ABG PO2 95.4 MM HG (80-95); Allen Test Positive; Pt O2 Delivery Device Ventilator
[2020-01-23 04:17] LABS: Calcium 7.7 MG/DL (8.5-10.1); Osmolality,Calculated 305.4 MOS/KG (273-304)
[2020-01-23 04:37] LABS: Hypochromasia 1+; Lymphocytes 3 % (20-55); Microcytosis 1+; Platelet Estimate Adequate; Segmented Neutrophils 96 % (50-85); Total Cells Counted 100
[2020-01-23 04:38] LABS: Ovalocytes Slight
[2020-01-23] MEDS: INSULIN LISPRO 100 UNIT/ML SUBCUT SCH ×3 (05:43→18:30)
[2020-01-23] MEDS: HYDROCORTISONE 100 MG VIAL IV SCH ×3 (05:43→20:00)
[2020-01-23] MEDS: METOCLOPRAMIDE 10 MG/2 ML VIAL IV SCH ×3 (05:43→18:31)
[2020-01-23] MEDS: ALBUMIN 25% 12.5 GM in PREMIX 1 EACH IV SCH ×2 (06:01→17:04)
[2020-01-23] MEDS: ASPIRIN CHEW 81 MG TABLET PO SCH (08:00)
[2020-01-23] MEDS: CETIRIZINE 10 MG TABLET PO SCH (08:00)
[2020-01-23] MEDS: CHOLECALCIFEROL 1,000 UNIT TABLET PO SCH (08:00)
[2020-01-23] MEDS: AMIODARONE 200 MG TABLET PO SCH ×2 (08:02→20:00)
[2020-01-23] MEDS: FUROSEMIDE 40 MG/4 ML VIAL IV SCH (08:02)
[2020-01-23] MEDS: ZINC GLUCONATE 50 MG TABLET PO SCH (08:02)
[2020-01-23] MEDS: ASCORBIC ACID 500 MG TABLET PO SCH (08:02)
[2020-01-23] MEDS: ENOXAPARIN 30 MG/0.3 ML SYRINGE SUBCUT SCH ×2 (08:02→19:55)
[2020-01-23] MEDS: FLUDROCORTISONE 0.1 MG TABLET PO SCH ×2 (08:09→20:00)
[2020-01-23] MEDS: FAMOTIDINE 20 MG/2 ML VIAL IV SCH (10:41)
[2020-01-23] MEDS ORDERED: fentaNYL INJ 2,500 MCG in SODIUM CHLORIDE 0.9% 450 ML IV PRN (21:05)
[2020-01-24] MEDS: ALBUMIN 25% 12.5 GM in PREMIX 1 EACH IV SCH ×3 (00:22→14:07)
[2020-01-24] MEDS: INSULIN LISPRO 100 UNIT/ML SUBCUT SCH ×4 (00:23→17:55)
[2020-01-24] MEDS: METOCLOPRAMIDE 10 MG/2 ML VIAL IV SCH ×5 (00:23→23:30)
[2020-01-24] MEDS: FAMOTIDINE 20 MG/2 ML VIAL IV SCH ×3 (00:23→23:30)
[2020-01-24 03:49] LABS: ABG Base Excess 3.5 MMOL/L (-2.5-2.5); ABG HCO3 27.5 MMOL/L (20-26); ABG Oxygen Saturation 98.3 % (95-100); ABG PH 7.264 (7.35-7.45); ABG TCO2 30.1 MMOL/L (23-27)
[2020-01-24 04:22] LABS: ABG PCO2 70.5 MM HG (35-48)
[2020-01-24 05:02] LABS: Basophils % 0.1 % (0.0-0.8); Hematocrit 25.3 VOL% (35.7-47.0); Hemoglobin 7.9 GM/DL (12.0-16.0); Immature Granulocytes % 2.8 %; Immature Granulocytes Absolute 0.49 #; Lymphocytes # 0.3 10*3/uL (1.4-4.0); Lymphocytes % 1.6 % (21.3-54.2); Mean Corpuscular HGB Conc 31.2 GM/DL (32-36); Mean Corpuscular Volume 94.1 FL (87-102); Mean Platelet Volume 12.4 FL (9.6-12.0); Monocytes % 1.9 % (1.7-12.7); NRBC # 0.09 10*3/uL; Neutrophils % 93.6 % (38.7-73.9); Platelet Count 146 T/CUMM (130-400); Red Blood Count 2.69 MC/CUMM (3.8-5.5); White Blood Count 17.4 T/CUMM (4-12)
[2020-01-24 05:23] LABS: Band Neutrophils 1 % (0-10); Hypochromasia 1+; Lymphocytes 4 % (20-55); Microcytosis 1+; Platelet Estimate Adequate; Segmented Neutrophils 94 % (50-85); Total Cells Counted 100
[2020-01-24 05:24] LABS: Calcium 8.1 MG/DL (8.5-10.1); Ferritin 528.2 ng/ml (8-252)
[2020-01-24] MEDS: HYDROCORTISONE 100 MG VIAL IV SCH ×3 (05:44→20:37)
[2020-01-24] MEDS: AMIODARONE 200 MG TABLET PO SCH ×2 (08:01→20:37)
[2020-01-24] MEDS: CHOLECALCIFEROL 1,000 UNIT TABLET PO SCH (08:01)
[2020-01-24] MEDS: ENOXAPARIN 30 MG/0.3 ML SYRINGE SUBCUT SCH ×2 (08:01→20:37)
[2020-01-24] MEDS: ASCORBIC ACID 500 MG TABLET PO SCH (08:01)
[2020-01-24] MEDS: FLUDROCORTISONE 0.1 MG TABLET PO SCH ×2 (08:01→20:41)
[2020-01-24] MEDS: ASPIRIN CHEW 81 MG TABLET PO SCH (08:01)
[2020-01-24] MEDS: CETIRIZINE 10 MG TABLET PO SCH (08:01)
[2020-01-24] MEDS: ZINC GLUCONATE 50 MG TABLET PO SCH (08:01)
[2020-01-24] MEDS: ROCURONIUM 500 MG in SODIUM CHLORIDE 0.9% 500 ML IV PRN (08:36)
[2020-01-24] MEDS: fentaNYL INJ 2,500 MCG in DEXTROSE 5% 75 ML IV PRN ×2 (11:52→21:06)
[2020-01-24] MEDS: ROCURONIUM 1,000 MG in DEXTROSE 5% 175 ML IV PRN (20:08)
[2020-01-25] MEDS: ALBUMIN 25% 12.5 GM in PREMIX 1 EACH IV SCH ×2 (00:02→07:47)
[2020-01-25] MEDS: INSULIN LISPRO 100 UNIT/ML SUBCUT SCH ×4 (00:03→17:02)
[2020-01-25 04:35] LABS: ABG Oxygen Saturation 89.6 % (95-100); ABG PCO2 61.1 MM HG (35-48); ABG PH 7.304 (7.35-7.45); ABG PO2 62.4 MM HG (80-95); ABG TCO2 28.7 MMOL/L (23-27); Allen Test Positive; Pt O2 Delivery Device Ventilator
[2020-01-25] MEDS: HYDROCORTISONE 100 MG VIAL IV SCH ×3 (05:30→20:10)
[2020-01-25] MEDS: METOCLOPRAMIDE 10 MG/2 ML VIAL IV SCH ×3 (05:30→17:02)
[2020-01-25 05:32] LABS: Basophils % 0.2 % (0.0-0.8); Eosinophils % 0.1 % (0.00-10.9); Hemoglobin 7.5 GM/DL (12.0-16.0); Immature Granulocytes % 2.8 %; Immature Granulocytes Absolute 0.36 #; Lymphocytes # 0.2 10*3/uL (1.4-4.0); Lymphocytes % 1.5 % (21.3-54.2); Mean Corpuscular HGB Conc 31.3 GM/DL (32-36); Mean Corpuscular Volume 94.9 FL (87-102); Mean Platelet Volume 12.5 FL (9.6-12.0); Monocytes % 2.8 % (1.7-12.7); NRBC # 0.33 10*3/uL; Neutrophils % 92.6 % (38.7-73.9); Platelet Count 129 T/CUMM (130-400); Red Blood Count 2.53 MC/CUMM (3.8-5.5); White Blood Count 13.1 T/CUMM (4-12)
[2020-01-25] MEDS: fentaNYL INJ 2,500 MCG in DEXTROSE 5% 75 ML IV PRN ×2 (05:36→14:50)
[2020-01-25 05:48] LABS: Calcium 7.9 MG/DL (8.5-10.1); Osmolality,Calculated 314.9 MOS/KG (273-304)
[2020-01-25 05:50] LABS: Calcium 7.9 MG/DL (8.5-10.1); Ferritin 452.5 ng/ml (8-252)
[2020-01-25] MEDS: ACETAMINOPHEN 325 MG TABLET PO PRN (05:50)
[2020-01-25 06:38] LABS: Lymphocytes 3 % (20-55); Nucleated Red Blood Cells 7 (0-5); Segmented Neutrophils 94 % (50-85); Total Cells Counted 100
[2020-01-25 06:39] LABS: Hypochromasia 1+; Microcytosis 1+
[2020-01-25] MEDS: ZINC GLUCONATE 50 MG TABLET PO SCH (08:01)
[2020-01-25] MEDS: ASCORBIC ACID 500 MG TABLET PO SCH (08:01)
[2020-01-25] MEDS: ASPIRIN CHEW 81 MG TABLET PO SCH (08:01)
[2020-01-25] MEDS: ENOXAPARIN 30 MG/0.3 ML SYRINGE SUBCUT SCH (08:01)
[2020-01-25] MEDS: FLUDROCORTISONE 0.1 MG TABLET PO SCH ×2 (08:01→20:10)
[2020-01-25] MEDS: CHOLECALCIFEROL 1,000 UNIT TABLET PO SCH (08:01)
[2020-01-25] MEDS: CETIRIZINE 10 MG TABLET PO SCH (08:02)
[2020-01-25] MEDS: AMIODARONE 200 MG TABLET PO SCH ×2 (08:02→20:10)
[2020-01-25] MEDS ORDERED: FUROSEMIDE 40 MG/4 ML VIAL IV ONE (10:30)
[2020-01-25] MEDS: FAMOTIDINE 20 MG/2 ML VIAL IV SCH ×2 (11:00→23:30)
[2020-01-25] MEDS ORDERED: ENOXAPARIN 30 MG/0.3 ML SYRINGE SUBCUT SCH (20:00)
[2020-01-26] MEDS: INSULIN LISPRO 100 UNIT/ML SUBCUT SCH ×4 (00:30→18:11)
[2020-01-26] MEDS: METOCLOPRAMIDE 10 MG/2 ML VIAL IV SCH ×4 (00:30→18:11)
[2020-01-26] MEDS: fentaNYL INJ 2,500 MCG in DEXTROSE 5% 75 ML IV PRN ×3 (00:35→18:45)
[2020-01-26] MEDS: ROCURONIUM 1,000 MG in DEXTROSE 5% 175 ML IV PRN (02:40)
[2020-01-26 05:07] LABS: Basophils % 0.1 % (0.0-0.8); Eosinophils % 0.1 % (0.00-10.9); Hematocrit 25.5 VOL% (35.7-47.0); Immature Granulocytes % 2.8 %; Immature Granulocytes Absolute 0.35 #; Lymphocytes # 0.3 10*3/uL (1.4-4.0); Lymphocytes % 2.5 % (21.3-54.2); Mean Corpuscular HGB Conc 31.4 GM/DL (32-36); Mean Corpuscular Volume 94.8 FL (87-102); Mean Platelet Volume 12.8 FL (9.6-12.0); Monocytes % 4.4 % (1.7-12.7); NRBC # 0.24 10*3/uL; Neutrophils % 90.1 % (38.7-73.9); Platelet Count 125 T/CUMM (130-400); Red Blood Count 2.69 MC/CUMM (3.8-5.5); Red Cell Distribution Width 17.4 % (9.3-17.3); White Blood Count 12.3 T/CUMM (4-12)
[2020-01-26 05:20] LABS: ABG HCO3 29.8 MMOL/L (20-26); ABG Oxygen Saturation 96.3 % (95-100); ABG PCO2 64.1 MM HG (35-48); ABG PH 7.325 (7.35-7.45); ABG PO2 87.2 MM HG (80-95); ABG TCO2 31.4 MMOL/L (23-27); Allen Test Positive; Pt O2 Delivery Device Ventilator
[2020-01-26 05:24] LABS: Calcium 7.9 MG/DL (8.5-10.1); Osmolality,Calculated 317.9 MOS/KG (273-304)
[2020-01-26] MEDS: HYDROCORTISONE 100 MG VIAL IV SCH ×3 (05:30→21:17)
[2020-01-26 06:11] LABS: Anisocytosis 1+; Band Neutrophils 11 % (0-10); Basophilic Stippling Slight; Lymphocytes 4 % (20-55); Metamyelocytes 1 %; Nucleated Red Blood Cells 2 (0-5); Ovalocytes Few; Platelet Estimate Adequate; Segmented Neutrophils 80 % (50-85); Total Cells Counted 100
[2020-01-26] MEDS: CETIRIZINE 10 MG TABLET PO SCH (08:14)
[2020-01-26] MEDS: ASPIRIN CHEW 81 MG TABLET PO SCH (08:15)
[2020-01-26] MEDS: CHOLECALCIFEROL 1,000 UNIT TABLET PO SCH (08:15)
[2020-01-26] MEDS: AMIODARONE 200 MG TABLET PO SCH ×2 (08:15→21:18)
[2020-01-26] MEDS: ZINC GLUCONATE 50 MG TABLET PO SCH (08:16)
[2020-01-26] MEDS: FLUDROCORTISONE 0.1 MG TABLET PO SCH ×2 (08:16→21:23)
[2020-01-26] MEDS: ASCORBIC ACID 500 MG TABLET PO SCH (08:16)
[2020-01-26] MEDS: FONDAPARINUX 10 MG/0.8 ML SYRINGE SUBCUT SCH (09:28)
[2020-01-26] MEDS: ACETAMINOPHEN 325 MG TABLET PO PRN (12:01)
[2020-01-26] MEDS: FAMOTIDINE 20 MG/2 ML VIAL IV SCH (12:03)
[2020-01-27] MEDS: METOCLOPRAMIDE 10 MG/2 ML VIAL IV SCH ×4 (00:06→18:04)
[2020-01-27] MEDS: INSULIN LISPRO 100 UNIT/ML SUBCUT SCH ×4 (00:06→18:03)
[2020-01-27] MEDS: FAMOTIDINE 20 MG/2 ML VIAL IV SCH ×3 (00:07→22:40)
[2020-01-27] MEDS: NOREPINEPHRINE 8 MG in SODIUM CHLORIDE 0.9% 242 ML IV PRN (02:15)
[2020-01-27] MEDS: ROCURONIUM 1,000 MG in DEXTROSE 5% 175 ML IV PRN (03:10)
[2020-01-27] MEDS: fentaNYL INJ 2,500 MCG in DEXTROSE 5% 75 ML IV PRN ×2 (03:55→13:45)
[2020-01-27 04:45] LABS: Allen Test Positive; Pt O2 Delivery Device Ventilator
[2020-01-27 04:46] LABS: ABG Base Excess 6.8 MMOL/L (-2.5-2.5); ABG HCO3 32.4 MMOL/L (20-26); ABG Oxygen Saturation 93.3 % (95-100); ABG PCO2 52.1 MM HG (35-48); ABG PH 7.411 (7.35-7.45); ABG PO2 72.8 MM HG (80-95)
[2020-01-27] MEDS: HYDROCORTISONE 100 MG VIAL IV SCH ×3 (05:15→21:01)
[2020-01-27 05:20] LABS: Basophils % 0.2 % (0.0-0.8); Eosinophils % 0.1 % (0.00-10.9); Hematocrit 26.7 VOL% (35.7-47.0); Hemoglobin 8.5 GM/DL (12.0-16.0); Immature Granulocytes % 5.3 %; Immature Granulocytes Absolute 0.79 #; Lymphocytes # 0.5 10*3/uL (1.4-4.0); Lymphocytes % 3.5 % (21.3-54.2); Mean Corpuscular HGB Conc 31.8 GM/DL (32-36); Mean Platelet Volume 12.9 FL (9.6-12.0); Monocytes % 4.4 % (1.7-12.7); NRBC # 0.33 10*3/uL; Neutrophils % 86.5 % (38.7-73.9); Platelet Count 143 T/CUMM (130-400); Red Blood Count 2.84 MC/CUMM (3.8-5.5); Red Cell Distribution Width 16.7 % (9.3-17.3); White Blood Count 14.9 T/CUMM (4-12)
[2020-01-27 05:51] LABS: Band Neutrophils 2 % (0-10); Calcium 7.9 MG/DL (8.5-10.1); Eosinophils 1 % (0-10); Hypochromasia Slight; Lymphocytes 4 % (20-55); Nucleated Red Blood Cells 9 (0-5); Platelet Estimate Normal; Segmented Neutrophils 90 % (50-85); Total Cells Counted 100
[2020-01-27] MEDS: CHOLECALCIFEROL 1,000 UNIT TABLET PO SCH (08:45)
[2020-01-27] MEDS: CETIRIZINE 10 MG TABLET PO SCH (08:45)
[2020-01-27] MEDS: AMIODARONE 200 MG TABLET PO SCH ×2 (08:45→20:56)
[2020-01-27] MEDS: ZINC GLUCONATE 50 MG TABLET PO SCH (08:45)
[2020-01-27] MEDS: ASPIRIN CHEW 81 MG TABLET PO SCH (08:45)
[2020-01-27] MEDS: ASCORBIC ACID 500 MG TABLET PO SCH (08:45)
[2020-01-27] MEDS: FLUDROCORTISONE 0.1 MG TABLET PO SCH ×2 (08:46→20:56)
[2020-01-27] MEDS: FONDAPARINUX 10 MG/0.8 ML SYRINGE SUBCUT SCH (08:47)
[2020-01-27 11:30] LABS: ABG Base Excess 6.2 MMOL/L (-2.5-2.5); ABG HCO3 33.6 MMOL/L (20-26); ABG Oxygen Saturation 94.2 % (95-100); ABG PCO2 66.9 MM HG (35-48); ABG PH 7.319 (7.35-7.45); ABG TCO2 35.7 MMOL/L (23-27); Allen Test Positive; Pt O2 Delivery Device Ventilator
[2020-01-27] MEDS: ALBUMIN 25% 12.5 GM in PREMIX 1 EACH IV SCH ×2 (15:05→22:40)
[2020-01-27] MEDS: MICAFUNGIN 50 MG, MICAFUNGIN 100 MG in SODIUM CHLORIDE 0.9% 100 ML IV SCH (16:11)
[2020-01-28] MEDS: INSULIN LISPRO 100 UNIT/ML SUBCUT SCH ×5 (00:29→23:26)
[2020-01-28] MEDS: METOCLOPRAMIDE 10 MG/2 ML VIAL IV SCH ×5 (00:29→23:08)
[2020-01-28 04:08] LABS: ABG HCO3 29.9 MMOL/L (20-26); ABG Oxygen Saturation 96.7 % (95-100); ABG PCO2 67.3 MM HG (35-48); ABG PH 7.309 (7.35-7.45); ABG PO2 88.6 MM HG (80-95); ABG TCO2 31.8 MMOL/L (23-27); Allen Test Positive; Pt O2 Delivery Device Ventilator
[2020-01-28 04:57] LABS: Basophils % 0.1 % (0.0-0.8); Eosinophils # 0.1 10*3/uL (0.0-0.87); Eosinophils % 0.8 % (0.00-10.9); Hemoglobin 7.9 GM/DL (12.0-16.0); Immature Granulocytes % 4.5 %; Immature Granulocytes Absolute 0.76 #; Lymphocytes # 0.8 10*3/uL (1.4-4.0); Lymphocytes % 4.4 % (21.3-54.2); Mean Corpuscular HGB Conc 30.4 GM/DL (32-36); Mean Corpuscular Volume 96.7 FL (87-102); Monocytes % 4.8 % (1.7-12.7); Neutrophils % 85.4 % (38.7-73.9); Platelet Count 149 T/CUMM (130-400); Red Blood Count 2.69 MC/CUMM (3.8-5.5); Red Cell Distribution Width 17.1 % (9.3-17.3)
[2020-01-28 05:11] LABS: Calcium 8.1 MG/DL (8.5-10.1); Osmolality,Calculated 311.3 MOS/KG (273-304)
[2020-01-28 05:20] LABS: Eosinophils 1 % (0-10); Hypochromasia 1+; Lymphocytes 9 % (20-55); Nucleated Red Blood Cells 13 (0-5); Ovalocytes Slight; Platelet Estimate Adequate; Segmented Neutrophils 85 % (50-85); Total Cells Counted 100
[2020-01-28 05:48] VITALS: BP 95/51
[2020-01-28] MEDS: ZINC GLUCONATE 50 MG TABLET PO SCH (08:18)
[2020-01-28] MEDS: FLUDROCORTISONE 0.1 MG TABLET PO SCH ×2 (08:18→20:09)
[2020-01-28] MEDS: ASCORBIC ACID 500 MG TABLET PO SCH (08:18)
[2020-01-28] MEDS: AMIODARONE 200 MG TABLET PO SCH ×2 (08:18→20:09)
[2020-01-28] MEDS: ASPIRIN CHEW 81 MG TABLET PO SCH (08:18)
[2020-01-28] MEDS: CETIRIZINE 10 MG TABLET PO SCH (08:18)
[2020-01-28] MEDS: CHOLECALCIFEROL 1,000 UNIT TABLET PO SCH (08:18)
[2020-01-28] MEDS: ALBUMIN 25% 12.5 GM in PREMIX 1 EACH IV SCH ×3 (08:19→23:05)
[2020-01-28] MEDS: ROCURONIUM 1,000 MG in DEXTROSE 5% 175 ML IV PRN (08:20)
[2020-01-28] MEDS: FONDAPARINUX 10 MG/0.8 ML SYRINGE SUBCUT SCH (08:20)
[2020-01-28] MEDS: hydroCHLOROthiazide 25 MG TABLET PO SCH (08:24)
[2020-01-28] MEDS ORDERED: hydroCHLOROthiazide 25 MG TABLET PO SCH (09:00)
[2020-01-28] MEDS: fentaNYL INJ 2,500 MCG in DEXTROSE 5% 75 ML IV PRN ×3 (09:18→18:04)
[2020-01-28] MEDS: HYDROCORTISONE 100 MG VIAL IV SCH (09:20)
[2020-01-28] MEDS ORDERED: SALIVA SUBSTITUTE SPRAY 60 ML CAN SWISH/SWAL PRN (09:37)
[2020-01-28] MEDS: FUROSEMIDE INJ 200 MG in SODIUM CHLORIDE 0.9% 80 ML IV SCH (10:21)
[2020-01-28] MEDS: methylPREDNISolone SOD SUC 40 MG/1 ML VIAL IV SCH ×2 (10:21→18:02)
[2020-01-28] MEDS: FAMOTIDINE 20 MG/2 ML VIAL IV SCH ×2 (12:10→23:11)
[2020-01-28] MEDS: MICAFUNGIN 50 MG, MICAFUNGIN 100 MG in SODIUM CHLORIDE 0.9% 100 ML IV SCH (16:50)
[2020-01-29] MEDS ORDERED: DEXTROSE 5% IV PRN (00:17)
[2020-01-29] MEDS ORDERED: CISATRACURIUM IV PRN (00:17)
[2020-01-29] MEDS: methylPREDNISolone SOD SUC 40 MG/1 ML VIAL IV SCH ×3 (02:25→18:18)
[2020-01-29] MEDS: fentaNYL INJ 2,500 MCG in DEXTROSE 5% 75 ML IV PRN ×3 (03:20→22:39)
[2020-01-29 03:41] LABS: ABG Base Excess 12.2 MMOL/L (-2.5-2.5); ABG HCO3 35.9 MMOL/L (20-26); ABG Oxygen Saturation 95.6 % (95-100); ABG PH 7.368 (7.35-7.45); ABG PO2 81.1 MM HG (80-95); ABG TCO2 37.1 MMOL/L (23-27); Allen Test Positive; Pt O2 Delivery Device Ventilator
[2020-01-29 03:43] LABS: ABG PCO2 69.3 MM HG (35-48)
[2020-01-29 04:03] LABS: Basophils % 0.2 % (0.0-0.8); Eosinophils % 0.1 % (0.00-10.9); Hematocrit 26.9 VOL% (35.7-47.0); Hemoglobin 8.4 GM/DL (12.0-16.0); Immature Granulocytes % 4.1 %; Immature Granulocytes Absolute 0.71 #; Lymphocytes # 0.3 10*3/uL (1.4-4.0); Lymphocytes % 1.6 % (21.3-54.2); Mean Corpuscular HGB Conc 31.2 GM/DL (32-36); Mean Corpuscular Volume 95.7 FL (87-102); Mean Platelet Volume 12.7 FL (9.6-12.0); Monocytes % 3.2 % (1.7-12.7); NRBC # 0.85 10*3/uL; Neutrophils % 90.8 % (38.7-73.9); Platelet Count 142 T/CUMM (130-400); Red Blood Count 2.81 MC/CUMM (3.8-5.5); Red Cell Distribution Width 16.6 % (9.3-17.3); White Blood Count 17.5 T/CUMM (4-12)
[2020-01-29 04:15] LABS: Calcium 8.2 MG/DL (8.5-10.1)
[2020-01-29 04:24] LABS: Band Neutrophils 1 % (0-10); Eosinophils 1 % (0-10); Lymphocytes 2 % (20-55); Nucleated Red Blood Cells 9 (0-5); Platelet Estimate Adequate; Segmented Neutrophils 93 % (50-85); Total Cells Counted 100
[2020-01-29 04:25] LABS: Hypochromasia 1+
[2020-01-29 04:27] LABS: Osmolality,Calculated 307.6 MOS/KG (273-304)
[2020-01-29] MEDS: METOCLOPRAMIDE 10 MG/2 ML VIAL IV SCH ×4 (05:32→23:04)
[2020-01-29] MEDS: INSULIN LISPRO 100 UNIT/ML SUBCUT SCH ×3 (05:34→17:38)
[2020-01-29] MEDS: ALBUMIN 25% 12.5 GM in PREMIX 1 EACH IV SCH ×3 (06:14→22:52)
[2020-01-29] MEDS: FUROSEMIDE INJ 200 MG in SODIUM CHLORIDE 0.9% 80 ML IV SCH (06:18)
[2020-01-29] MEDS: POTASSIUM CHLORIDE 20 MEQ/15 ML UDCUP PO PRN ×6 (06:50→22:51)
[2020-01-29] MEDS: AMIODARONE 200 MG TABLET PO SCH ×2 (08:20→20:12)
[2020-01-29] MEDS: ASCORBIC ACID 500 MG TABLET PO SCH (08:20)
[2020-01-29] MEDS: ZINC GLUCONATE 50 MG TABLET PO SCH (08:20)
[2020-01-29] MEDS: CHOLECALCIFEROL 1,000 UNIT TABLET PO SCH (08:20)
[2020-01-29] MEDS: CETIRIZINE 10 MG TABLET PO SCH (08:20)
[2020-01-29] MEDS: hydroCHLOROthiazide 25 MG TABLET PO SCH (08:20)
[2020-01-29] MEDS: ASPIRIN CHEW 81 MG TABLET PO SCH (08:20)
[2020-01-29] MEDS: FONDAPARINUX 10 MG/0.8 ML SYRINGE SUBCUT SCH (08:25)
[2020-01-29] MEDS: FLUDROCORTISONE 0.1 MG TABLET PO SCH ×2 (08:31→20:12)
[2020-01-29] MEDS: FAMOTIDINE 20 MG/2 ML VIAL IV SCH ×2 (10:38→22:51)
[2020-01-29] MEDS: ROCURONIUM 1,000 MG in DEXTROSE 5% 175 ML IV PRN (10:44)
[2020-01-29 11:36] LABS: ABG Base Excess 14.1 MMOL/L (-2.5-2.5); ABG HCO3 37.8 MMOL/L (20-26); ABG Oxygen Saturation 89.2 % (95-100); ABG PH 7.374 (7.35-7.45); ABG PO2 58.8 MM HG (80-95); ABG TCO2 39.2 MMOL/L (23-27)
[2020-01-29 11:38] LABS: ABG PCO2 71.7 MM HG (35-48)
[2020-01-29] MEDS: NOREPINEPHRINE 8 MG in SODIUM CHLORIDE 0.9% 242 ML IV PRN (15:46)
[2020-01-29] MEDS: MICAFUNGIN 50 MG, MICAFUNGIN 100 MG in SODIUM CHLORIDE 0.9% 100 ML IV SCH (16:05)
[2020-01-30] MEDS: INSULIN LISPRO 100 UNIT/ML SUBCUT SCH ×4 (00:20→17:45)
[2020-01-30] MEDS: POTASSIUM CHLORIDE 20 MEQ/15 ML UDCUP PO PRN ×2 (00:20→16:11)
[2020-01-30] MEDS: methylPREDNISolone SOD SUC 40 MG/1 ML VIAL IV SCH ×3 (02:49→18:21)
[2020-01-30 04:27] LABS: ABG Base Excess 15.8 MMOL/L (-2.5-2.5); ABG HCO3 39.7 MMOL/L (20-26); ABG Oxygen Saturation 96.5 % (95-100); ABG PH 7.372 (7.35-7.45); ABG PO2 84.4 MM HG (80-95); ABG TCO2 41.1 MMOL/L (23-27); Allen Test Positive; Pt O2 Delivery Device Ventilator
[2020-01-30 04:30] LABS: ABG PCO2 75.5 MM HG (35-48)
[2020-01-30 05:10] LABS: Basophils % 0.2 % (0.0-0.8); Hematocrit 25.9 VOL% (35.7-47.0); Immature Granulocytes % 3.4 %; Immature Granulocytes Absolute 0.64 #; Lymphocytes # 0.3 10*3/uL (1.4-4.0); Lymphocytes % 1.7 % (21.3-54.2); Mean Corpuscular HGB Conc 30.9 GM/DL (32-36); Mean Corpuscular Volume 95.9 FL (87-102); Mean Platelet Volume 13.2 FL (9.6-12.0); Monocytes % 3.2 % (1.7-12.7); NRBC # 0.52 10*3/uL; Neutrophils % 91.5 % (38.7-73.9); Platelet Count 134 T/CUMM (130-400); Red Cell Distribution Width 17.3 % (9.3-17.3); White Blood Count 18.7 T/CUMM (4-12)
[2020-01-30 05:20] LABS: Calcium 8.3 MG/DL (8.5-10.1); Osmolality,Calculated 311.4 MOS/KG (273-304)
[2020-01-30 05:32] LABS: Band Neutrophils 2 % (0-10); Eosinophils 1 % (0-10); Hypochromasia 1+; Lymphocytes 6 % (20-55); Metamyelocytes 2 %; Nucleated Red Blood Cells 5 (0-5); Segmented Neutrophils 86 % (50-85); Total Cells Counted 100
[2020-01-30 05:33] LABS: Anisocytosis 1+; Microcytosis 1+; Polychromasia Slight
[2020-01-30 05:34] LABS: Platelet Estimate Adequate
[2020-01-30] MEDS: METOCLOPRAMIDE 10 MG/2 ML VIAL IV SCH ×3 (06:14→17:46)
[2020-01-30] MEDS: ALBUMIN 25% 12.5 GM in PREMIX 1 EACH IV SCH (06:15)
[2020-01-30] MEDS: fentaNYL INJ 2,500 MCG in DEXTROSE 5% 75 ML IV PRN ×2 (08:07→17:45)
[2020-01-30] MEDS: FONDAPARINUX 10 MG/0.8 ML SYRINGE SUBCUT SCH (09:15)
[2020-01-30] MEDS: hydroCHLOROthiazide 25 MG TABLET PO SCH (09:16)
[2020-01-30] MEDS: CETIRIZINE 10 MG TABLET PO SCH (09:16)
[2020-01-30] MEDS: AMIODARONE 200 MG TABLET PO SCH ×2 (09:16→20:15)
[2020-01-30] MEDS: CHOLECALCIFEROL 1,000 UNIT TABLET PO SCH (09:16)
[2020-01-30] MEDS: ZINC GLUCONATE 50 MG TABLET PO SCH (09:16)
[2020-01-30] MEDS: ASPIRIN CHEW 81 MG TABLET PO SCH (09:16)
[2020-01-30] MEDS: ASCORBIC ACID 500 MG TABLET PO SCH (09:16)
[2020-01-30] MEDS: FLUDROCORTISONE 0.1 MG TABLET PO SCH ×2 (09:27→20:15)
[2020-01-30] MEDS: FAMOTIDINE 20 MG/2 ML VIAL IV SCH (11:15)
[2020-01-30] MEDS: ROCURONIUM 1,000 MG in DEXTROSE 5% 175 ML IV PRN (11:50)
[2020-01-30] MEDS: MICAFUNGIN 50 MG, MICAFUNGIN 100 MG in SODIUM CHLORIDE 0.9% 100 ML IV SCH (16:10)
[2020-01-30] MEDS: INSULIN GLARGINE 100 UNIT/ML SUBCUT SCH (20:15)
[2020-01-31] MEDS: INSULIN LISPRO 100 UNIT/ML SUBCUT SCH ×4 (00:52→18:18)
[2020-01-31] MEDS: FAMOTIDINE 20 MG/2 ML VIAL IV SCH ×2 (00:52→12:08)
[2020-01-31] MEDS: METOCLOPRAMIDE 10 MG/2 ML VIAL IV SCH ×4 (00:52→18:18)
[2020-01-31] MEDS: fentaNYL INJ 2,500 MCG in DEXTROSE 5% 75 ML IV PRN ×2 (02:13→14:34)
[2020-01-31 04:12] LABS: ABG Base Excess 14.7 MMOL/L (-2.5-2.5); ABG HCO3 42.6 MMOL/L (20-26); ABG Oxygen Saturation 94.3 % (95-100); ABG PH 7.357 (7.35-7.45); ABG PO2 82.7 MM HG (80-95); Allen Test Positive; Pt O2 Delivery Device Ventilator
[2020-01-31 04:14] LABS: ABG PCO2 77.7 MM HG (35-48)
[2020-01-31] MEDS: methylPREDNISolone SOD SUC 40 MG/1 ML VIAL IV SCH ×3 (04:15→18:18)
[2020-01-31 04:52] LABS: Basophils % 0.1 % (0.0-0.8); Hematocrit 28.2 VOL% (35.7-47.0); Hemoglobin 8.8 GM/DL (12.0-16.0); Immature Granulocytes % 2.8 %; Immature Granulocytes Absolute 0.61 #; Lymphocytes # 0.4 10*3/uL (1.4-4.0); Lymphocytes % 1.7 % (21.3-54.2); Mean Corpuscular HGB Conc 31.2 GM/DL (32-36); Mean Corpuscular Volume 96.9 FL (87-102); Mean Platelet Volume 13.3 FL (9.6-12.0); Monocytes % 3.3 % (1.7-12.7); NRBC # 0.45 10*3/uL; Neutrophils % 92.1 % (38.7-73.9); Platelet Count 134 T/CUMM (130-400); Red Blood Count 2.91 MC/CUMM (3.8-5.5); White Blood Count 21.8 T/CUMM (4-12)
[2020-01-31 05:11] LABS: Hypochromasia 2+; Lymphocytes 9 % (20-55); Microcytosis 1+; Nucleated Red Blood Cells 1 (0-5); Platelet Estimate Adequate; Segmented Neutrophils 89 % (50-85); Total Cells Counted 100
[2020-01-31 05:12] LABS: Albumin 3.1 G/DL (3.4-5.0); Bilirubin,Total 2.6 MG/DL (0.2-1.0); Calcium 8.5 MG/DL (8.5-10.1); Total Protein 6.2 G/DL (6.4-8.3)
[2020-01-31] MEDS: FONDAPARINUX 10 MG/0.8 ML SYRINGE SUBCUT SCH (08:40)
[2020-01-31] MEDS: hydroCHLOROthiazide 25 MG TABLET PO SCH (08:40)
[2020-01-31] MEDS: ASPIRIN CHEW 81 MG TABLET PO SCH (08:40)
[2020-01-31] MEDS: POTASSIUM CHLORIDE 20 MEQ/15 ML UDCUP PO PRN ×3 (08:40→12:30)
[2020-01-31] MEDS: AMIODARONE 200 MG TABLET PO SCH ×2 (08:40→20:04)
[2020-01-31] MEDS: ASCORBIC ACID 500 MG TABLET PO SCH (08:40)
[2020-01-31] MEDS: FLUDROCORTISONE 0.1 MG TABLET PO SCH ×2 (08:40→20:04)
[2020-01-31] MEDS: CETIRIZINE 10 MG TABLET PO SCH (08:40)
[2020-01-31] MEDS: CHOLECALCIFEROL 1,000 UNIT TABLET PO SCH (08:40)
[2020-01-31] MEDS: ZINC GLUCONATE 50 MG TABLET PO SCH (08:40)
[2020-01-31] MEDS: ROCURONIUM 1,000 MG in DEXTROSE 5% 175 ML IV PRN (14:34)
[2020-01-31] MEDS: MICAFUNGIN 50 MG, MICAFUNGIN 100 MG in SODIUM CHLORIDE 0.9% 100 ML IV SCH (17:11)
[2020-01-31] MEDS: INSULIN GLARGINE 100 UNIT/ML SUBCUT SCH (20:04)
[2020-01-31] MEDS: ACETAMINOPHEN 325 MG TABLET PO PRN (20:47)
[2020-01-31] MEDS: fentaNYL INJ 2,500 MCG in SODIUM CHLORIDE 0.9% 75 ML IV PRN (23:02)
[2020-02-01] MEDS: INSULIN LISPRO 100 UNIT/ML SUBCUT SCH ×4 (00:23→18:12)
[2020-02-01] MEDS: FAMOTIDINE 20 MG/2 ML VIAL IV SCH ×3 (00:23→22:44)
[2020-02-01] MEDS: METOCLOPRAMIDE 10 MG/2 ML VIAL IV SCH ×4 (00:23→18:12)
[2020-02-01] MEDS: methylPREDNISolone SOD SUC 40 MG/1 ML VIAL IV SCH ×3 (04:17→20:30)
[2020-02-01 04:27] LABS: ABG Base Excess 10.9 MMOL/L (-2.5-2.5); ABG HCO3 38.3 MMOL/L (20-26); ABG Oxygen Saturation 97.3 % (95-100); ABG PH 7.348 (7.35-7.45); ABG PO2 110.2 MM HG (80-95); ABG TCO2 40.5 MMOL/L (23-27); Allen Test Positive; Pt O2 Delivery Device Ventilator
[2020-02-01 04:33] LABS: ABG PCO2 71.3 MM HG (35-48)
[2020-02-01 04:44] LABS: Basophils % 0.2 % (0.0-0.8); Eosinophils % 0.2 % (0.00-10.9); Hematocrit 28.6 VOL% (35.7-47.0); Hemoglobin 8.8 GM/DL (12.0-16.0); Immature Granulocytes Absolute 0.58 #; Lymphocytes # 0.8 10*3/uL (1.4-4.0); Lymphocytes % 3.9 % (21.3-54.2); Mean Corpuscular HGB Conc 30.8 GM/DL (32-36); Mean Corpuscular Volume 97.9 FL (87-102); Mean Platelet Volume 13.4 FL (9.6-12.0); Monocytes % 3.9 % (1.7-12.7); Neutrophils % 88.8 % (38.7-73.9); Platelet Count 112 T/CUMM (130-400); Red Blood Count 2.92 MC/CUMM (3.8-5.5); Red Cell Distribution Width 18.4 % (9.3-17.3); White Blood Count 19.3 T/CUMM (4-12)
[2020-02-01 04:54] LABS: Calcium 8.1 MG/DL (8.5-10.1)
[2020-02-01 05:02] LABS: Eosinophils 1 % (0-10); Lymphocytes 6 % (20-55); Nucleated Red Blood Cells 8 (0-5); Segmented Neutrophils 89 % (50-85); Total Cells Counted 100
[2020-02-01 05:03] LABS: Hypochromasia 2+
[2020-02-01 05:04] LABS: Microcytosis 1+; Platelet Estimate Decreased; Polychromasia Slight; Target Cells Slight
[2020-02-01] MEDS: ASPIRIN CHEW 81 MG TABLET PO SCH (09:14)
[2020-02-01] MEDS: ZINC GLUCONATE 50 MG TABLET PO SCH (09:14)
[2020-02-01] MEDS: CHOLECALCIFEROL 1,000 UNIT TABLET PO SCH (09:14)
[2020-02-01] MEDS: ASCORBIC ACID 500 MG TABLET PO SCH (09:14)
[2020-02-01] MEDS: AMIODARONE 200 MG TABLET PO SCH ×2 (09:14→20:30)
[2020-02-01] MEDS: FLUDROCORTISONE 0.1 MG TABLET PO SCH ×2 (09:14→20:30)
[2020-02-01] MEDS: hydroCHLOROthiazide 25 MG TABLET PO SCH (09:14)
[2020-02-01] MEDS: CETIRIZINE 10 MG TABLET PO SCH (09:14)
[2020-02-01] MEDS: FONDAPARINUX 10 MG/0.8 ML SYRINGE SUBCUT SCH (09:15)
[2020-02-01] MEDS: fentaNYL INJ 2,500 MCG in SODIUM CHLORIDE 0.9% 75 ML IV PRN ×2 (11:30→21:00)
[2020-02-01] MEDS: NOREPINEPHRINE 8 MG in SODIUM CHLORIDE 0.9% 242 ML IV PRN (13:15)
[2020-02-01] MEDS: MICAFUNGIN 50 MG, MICAFUNGIN 100 MG in SODIUM CHLORIDE 0.9% 100 ML IV SCH (16:55)
[2020-02-01] MEDS: ROCURONIUM 1,000 MG in DEXTROSE 5% 175 ML IV PRN (17:13)
[2020-02-01] MEDS: INSULIN GLARGINE 100 UNIT/ML SUBCUT SCH (20:30)
[2020-02-02] MEDS: INSULIN LISPRO 100 UNIT/ML SUBCUT SCH ×3 (00:22→11:00)
[2020-02-02] MEDS: NOREPINEPHRINE 8 MG in SODIUM CHLORIDE 0.9% 242 ML IV PRN (00:31)
[2020-02-02] MEDS: METOCLOPRAMIDE 10 MG/2 ML VIAL IV SCH ×3 (00:45→11:12)
[2020-02-02 03:25] LABS: ABG Base Excess 7.7 MMOL/L (-2.5-2.5); ABG HCO3 31.3 MMOL/L (20-26); ABG Oxygen Saturation 89.9 % (95-100); ABG PH 7.277 (7.35-7.45); ABG PO2 67.9 MM HG (80-95); ABG TCO2 34.5 MMOL/L (23-27); Allen Test Positive; Pt O2 Delivery Device Ventilator
[2020-02-02 03:28] LABS: ABG PCO2 79.3 MM HG (35-48)
[2020-02-02] MEDS: methylPREDNISolone SOD SUC 40 MG/1 ML VIAL IV SCH ×2 (03:45→11:12)
[2020-02-02] MEDS: fentaNYL INJ 2,500 MCG in SODIUM CHLORIDE 0.9% 75 ML IV PRN (04:46)
[2020-02-02 06:44] LABS: Basophils # 0.1 10*3/uL (0.0-0.2); Basophils % 0.2 % (0.0-0.8); Hemoglobin 9.4 GM/DL (12.0-16.0); Immature Granulocytes % 2.3 %; Lymphocytes # 0.4 10*3/uL (1.4-4.0); Lymphocytes % 1.6 % (21.3-54.2); Mean Corpuscular HGB Conc 31.3 GM/DL (32-36); Mean Platelet Volume 13.7 FL (9.6-12.0); Monocytes % 1.7 % (1.7-12.7); NRBC # 1.31 10*3/uL; Neutrophils % 94.2 % (38.7-73.9); Platelet Count 111 T/CUMM (130-400); Red Cell Distribution Width 19.4 % (9.3-17.3)
[2020-02-02 07:05] LABS: Band Neutrophils 5 % (0-10); Lymphocytes 2 % (20-55); Nucleated Red Blood Cells 10 (0-5); Platelet Estimate Decreased; Segmented Neutrophils 92 % (50-85); Total Cells Counted 100
[2020-02-02 07:06] LABS: Hypochromasia 1+; Microcytosis 1+
[2020-02-02] MEDS: hydroCHLOROthiazide 25 MG TABLET PO SCH (09:01)
[2020-02-02] MEDS: FONDAPARINUX 10 MG/0.8 ML SYRINGE SUBCUT SCH (09:01)
[2020-02-02] MEDS: ASPIRIN CHEW 81 MG TABLET PO SCH (09:01)
[2020-02-02] MEDS: CHOLECALCIFEROL 1,000 UNIT TABLET PO SCH (09:01)
[2020-02-02] MEDS: ZINC GLUCONATE 50 MG TABLET PO SCH (09:02)
[2020-02-02] MEDS: CETIRIZINE 10 MG TABLET PO SCH (09:02)
[2020-02-02] MEDS: FLUDROCORTISONE 0.1 MG TABLET PO SCH (09:02)
[2020-02-02] MEDS: AMIODARONE 200 MG TABLET PO SCH (09:02)
[2020-02-02] MEDS: ASCORBIC ACID 500 MG TABLET PO SCH (09:02)
[2020-02-02] MEDS: FAMOTIDINE 20 MG/2 ML VIAL IV SCH (11:12)
[2020-02-02] MEDS ORDERED: CALCIUM CHLORIDE 1,000 MG/10 ML SYRINGE IV ONE (12:40)
[2020-02-02] MEDS ORDERED: SODIUM BICARBONATE 50 MEQ/50 ML SYRINGE IV ONE (12:40)
[2020-02-02] MEDS ORDERED: EPINEPHrine 1 MG/10 ML SYRINGE ONE (12:40)
[2020-02-02] MEDS ORDERED: ZINC OXIDE PASTE 113 GM TUBE TOP SCH (14:00)
== END 2020-02-02 12:55 | disposition expired | DRG 207 ==
LOC: N.ED 07:50 → N.EDINP 10:42 → SUATTDRO 10:42 → N.2E 11:55 → N.CC 01-15 10:31
PROVIDERS: ADMIT Family Medicine; ATTEND Internal Medicine